=== PATIENT | female | born 1990 | race Caucasian/White ===

== ENCOUNTER 2016-05-14 07:08 | Emergency (ER) | payer SELFPAY ==
[2016-05-14] MEDS ORDERED: NORMAL SALINE 1000 ML 1,000 ML IV ONE (07:51)
--- NOTE | 2016-05-14 07:56 | ER Document Report ---
ED GI/ <MARQUIS SIDDIQUI - Last Filed: 05/14/16 13:06> - General Mode of Arrival: Ambulatory TRAVEL OUTSIDE OF THE [place] IN LAST 30 DAYS: No - HPI Patient complains to provider of: Abdominal pain, Vomiting Onset: Yesterday Timing/Duration: Sudden, Persistent Vaginal bleeding (Compared to normal period): None Menstrual period history: : 6 Para: 3 - Associated symptoms: Lightheaded, Nausea, Vomiting. denies: Fever Exacerbated by: Denies <RAMONA BOSS - Last Filed: 05/16/16 05:57> - General Chief Complaint: Vomiting Stated Complaint: STOMACH PAIN Notes: Patient is a 25 y/o female smoker presenting to the emergency department concerned of vomiting onset approximately 24 hours ago. Patient states that she does normally experience nausea and vomiting with her pregnancies, but not with accompanied abdominal pain. Patient states that her generalized abdominal pain started after the vomiting, and that she is also experiencing weakness and lightheadedness. Patient denies any fever, cough, vaginal bleeding, or anything that exacerbates her symptoms. (RAMONA BOSS) - Related Data Allergies/Adverse Reactions: fish derived [Fish derived] Allergy (Severe, Verified 05/14/16 07:13) swelling Penicillins Allergy (Severe, Verified 05/14/16 07:13) hives, rash Shellfish * [Shellfish] Allergy (Severe, Verified 05/14/16 07:13) Hives Home Medications: Current Home Medications Ranitidine HCl [Zantac] 150 mg PO DAILY 05/14/16 [History] Past Medical History - General Information source: Patient - Social History Smoking Status: Current Every Day Smoker Chew tobacco use (# tins/day): No Frequency of alcohol use: None Drug Abuse: None Lives with: Spouse/Significant other Family History: Reviewed & Not Pertinent, Arthritis, Hyperlipidemia, Hypertension, Malignancy Patient has suicidal ideation: No Patient has homicidal ideation: No Pulmonary Medical History: Reports: Hx Asthma - inhalers if needed, Hx Bronchitis Endocrine Medical History: Reports: Hx Hypothyroidism Renal/ Medical History: Reports: Other - 2 Miscarriages GI Medical History: Reports: Hx Gastroesophageal Reflux Disease Musculoskeltal Medical History: Reports Hx Musculoskeletal Deformity - Degenerative disc disease gentle joint disease and chronic back pain, Reports Hx Musculoskeletal Trauma Psychiatric Medical History: Reports: Hx Anxiety, Hx Depression Past Surgical History: Reports: Hx Section - X3, Hx Cholecystectomy - Immunizations Immunizations up to date: Yes Hx Diphtheria, Pertussis, Tetanus Vaccination: Yes Hx Pneumococcal Vaccination: 05/03/13 <RAMONA BOSS - Last Filed: 05/16/16 05:57> Review of Systems - Review of Systems Constitutional: See HPI, Weakness. denies: Fever EENT: No symptoms reported Cardiovascular: See HPI, Lightheaded Respiratory: No symptoms reported. denies: Cough Gastrointestinal: See HPI, Abdominal pain, Nausea, Vomiting Genitourinary: No symptoms reported Female Genitourinary: No symptoms reported. denies: Vaginal bleeding Musculoskeletal: No symptoms reported Skin: No symptoms reported Hematologic/Lymphatic: No symptoms reported Neurological/Psychological: No symptoms reported -: Yes All other systems reviewed and negative <RAMONA BOSS - Last Filed: 05/16/16 05:57> Physical Exam - Vital signs Interpretation: Tachycardic - General General appearance: Alert - HEENT Head: Normocephalic, Atraumatic Eyes: Normal Pupils: PERRL Mucous membranes: Normal - Respiratory Respiratory status: No respiratory distress Chest status: Nontender Breath sounds: Normal Chest palpation: Normal - Cardiovascular Rhythm: Tachycardia Heart sounds: Normal auscultation Murmur: No - Abdominal Inspection: Obese Distension: No distension Bowel sounds: Normal Tenderness: Tender - Mild diffuse tenderness to palpation. Organomegaly: No organomegaly - Back Back: Normal, Nontender - Extremities General upper extremity: Normal inspection, Nontender, Normal color, Normal ROM , Normal temperature General lower extremity: Normal inspection, Nontender, Normal color, Normal ROM , Normal temperature - Neurological Neuro grossly intact: Yes Cognition: Normal [place] Coma Scale Eye Opening: Spontaneous [place] Coma Scale Verbal: Oriented [place] Coma Scale Motor: Obeys Commands [place] Coma Scale Total: 15 Speech: Normal - Psychological Associated symptoms: Normal affect, Normal mood - Skin Skin Temperature: Warm Skin Moisture: Dry Skin Color: Normal <RAMONA BOSS - Last Filed: 05/16/16 05:57> - Vital signs Vitals: Temp Pulse Resp BP Pulse Ox 97.9 F 138 H 20 118/77 100 05/14/16 07:13 05/14/16 07:13 05/14/16 07:13 05/14/16 07:13 05/14/16 07:13 (MARQUIS SIDDIQUI) (RAMONA BOSS) Course - Laboratory Result Diagrams: 05/14/16 08:15 05/14/16 08:15 - Diagnostic Test Radiology reviewed: Reports reviewed - Ultrasound shows a 6 week 5 day intrauterine with a heart rate 157. There are no other significant abnormalities noted. <MARQUIS SIDDIQUI - Last Filed: 05/14/16 13:06> - Laboratory Result Diagrams: 05/14/16 08:15 05/14/16 08:15 <RAMONA BOSS - Last Filed: 05/16/16 05:57> - Re-evaluation Re-evalutation: 05/14/16 13:07 The patient's nauseousness returned when the Reglan began to wear off. She was reevaluated and abdomen found to be quite soft, normal bowel sounds, diffusely mildly tender. She states it feels sore from all the vomiting she has been doing. She'll be discharged home with a prescription for Phenergan and recommendation to follow-up with [facility]. (MARQUIS SIDDIQUI) - Vital Signs Vital signs: Temp Pulse Resp BP Pulse Ox 98.2 F 88 16 109/68 100 05/14/16 13:43 05/14/16 13:43 05/14/16 13:43 05/14/16 13:43 05/14/16 13:43 (MARQUIS SIDDIQUI) (RAMONA BOSS) - Laboratory Laboratory results interpreted by me: 05/14/16 05/14/16 05/14/16 08:15 08:15 09:15 WBC 15.0 H Seg Neutrophils % 82.6 H Lymphocytes % 10.8 L Absolute Neutrophils 12.4 H Beta HCG, Quant 47464.00 H Urine Blood SMALL H Ur Leukocyte Esterase TRACE H (MARQUIS SIDDIQUI) Discharge <MARQUIS SIDDIQUI - Last Filed: 05/14/16 13:06> <RAMONA BOSS - Last Filed: 05/16/16 05:57> - Discharge Clinical Impression: Nausea and vomiting Qualifiers: Vomiting type: unspecified Vomiting Intractability: non-intractable Qualified Code(s): R11.2 - Nausea with vomiting, unspecified Abdominal pain Qualifiers: Abdominal location: generalized Qualified Code(s): R10.84 - Generalized abdominal pain Qualifiers: Weeks of gestation: less than 8 weeks Qualified Code(s): Z3A.01 - Less than 8 weeks gestation of Condition: Stable Disposition: HOME, SELF-CARE Additional Instructions: Hyperemesis Gravidarum Hyperemesis gravidarum is the medical term for severe vomiting during . We don't know exactly why it occurs, but it's a common problem. Dehydration can occur. This reduces blood flow to the placenta, decreasing the baby's nourishment. The baby will also become dehydrated. There can be harmful changes in blood sodium, potassium, or acid balance. Our goal is to correct, and prevent, dehydration. For severe cases, we give IV fluids. Antinausea medication will be prescribed. (Don't be concerned about " defects" -- the risk to you and your baby from the hyperemesis is the biggest problem. The antinausea medication is very safe at this stage of .) Call the doctor if you have vaginal bleeding, abdominal pain, severe lightheadedness or weakness, or other alarming symptoms. Nausea or Vomiting, Nonspecific: Vomiting (or nausea without vomiting) can be caused by many different problems. Of course, it can mean that something's wrong with the stomach, such as "stomach flu," ulcers, or inflammation. But it can also be a symptom of a problem that has nothing to do with the stomach or intestines. Vomiting is common with severe headaches, earaches, and tonsillitis. We see it with pneumonia or heart attacks. Drugs can cause nausea. Many abdominal problems cause vomiting; for example, gallstones, kidney stones, pancreatitis, and intestinal obstruction (blocked bowels). In most cases, curing the vomiting depends on fixing the problem that caused it. For temporary relief, we may use an anti-nausea medicine. For home use, we can prescribe suppositories, chewable pills, pills that dissolve in the mouth, or liquid anti-nausea drugs. If the vomiting seems to be caused by a problem in the stomach, acid-suppressing drugs may be prescribed as well. It's important to avoid dehydration. Sip clear liquids. Take increasing amounts of fluid over the first 24 hours. Then start small amounts of bland foods (such as dry toast, applesauce, mashed potato). Avoid aspirin, tobacco, and alcohol. Gradually resume your usual diet. If the vomiting worsens, if the problem that's making you vomit worsens, or if there's evidence of bleeding in the stomach (such as black, tarry stool, bloody or black vomit, or lightheadedness), you should return immediately. Call your doctor if you aren't improved in 24 to 36 hours. //////////////////////////////////////////////////////////////////////////////// //////////////////////////////////////////////////////////////////////////////// ///////////////// Your ultrasound shows a 6 week 5 day intrauterine with a heart rate of 157. It is a normal-appearing ultrasound. At this time I cannot tell if you're having hyperemesis gravidarum, or nausea vomiting from a viral illness. Both would be treated the same at this time. Take medications as prescribed. Drink small sips cool clear liquids. Bed rest. Follow-up with [facility]. RETURN TO THE EMERGENCY ROOM IF ANY NEW OR WORSENING SYMPTOMS. Prescriptions: Promethazine HCl [Phenergan 25 mg Tablet] 25 mg PO Q4 PRN #20 tablet PRN Reason: Forms: Return to Work Referrals: [facility] [Provider Group] - Follow up as needed Scribe Attestation: 05/14/16 13:11 I personally performed the services described in the documentation, reviewed and edited the documentation which was dictated to the scribe in my presence, and it accurately records my words and actions. (MARQUIS SIDDIQUI) Scribe Documentation <MARQUIS SIDDIQUI - Last Filed: 05/14/16 13:06> <RAMONA BOSS - Last Filed: 05/16/16 05:57> - Scribe Written by Bettyibe:: TERI DEE 05/14/16 0751 Acting as scribe for: (MARQUIS SIDDIQUI) Dr. Siddiqui (RAMONA BOSS)
[2016-05-14 08:34] LABS: ABSOLUTE BASOPHILS # (AUTO) 0.1 10^3/uL (0.0-0.2); ABSOLUTE EOSINOPHILS # (AUTO) 0.2 10^3/uL (0.0-0.6); ABSOLUTE LYMPHOCYTES (AUTO) 1.6 10^3/uL (0.5-4.7); ABSOLUTE MONOCYTES (AUTO) 0.7 10^3/uL (0.1-1.4); ABSOLUTE NEUT (AUTO) 12.4 10^3/uL (1.7-8.2); BASOPHILS % (AUTO) 0.4 % (0-2); EOSINOPHILS % (AUTO) 1.4 % (0-6); HEMATOCRIT 44.5 % (36.0-47.0); HEMOGLOBIN 15.2 g/dL (12.0-15.5); HGB HCT DIFFERENCE 1.1; LYMPHOCYTES % (AUTO) 10.8 % (13-45); MEAN CORPUSCULAR HEMOGLOBIN 30.5 pg (27.0-33.4); MEAN CORPUSCULAR HGB CONC 34.2 g/dL (32.0-36.0); MEAN CORPUSCULAR VOLUME 89 fl (80-97); MONOCYTES % (AUTO) 4.8 % (3-13); RED BLOOD COUNT 4.99 10^6/uL (3.72-5.28); SEGMENTED NEUTROPHILS % (AUTO) 82.6 % (42-78)
[2016-05-14 08:54] LABS: ALANINE AMINOTRANSFERASE 17 U/L (9-52); ALBUMIN 4.1 g/dL (3.5-5.0); ALKALINE PHOSPHATASE 60 U/L (38-126); ANION GAP 13 (5-19); ASPARTATE AMINO TRANSFERASE 17 U/L (14-36); BILIRUBIN,TOTAL 0.5 mg/dL (0.2-1.3); BLOOD UREA NITROGEN 10 mg/dL (7-20); CALCIUM 9.7 mg/dL (8.4-10.2); CARBON DIOXIDE 25 mmol/L (22-30); CHLORIDE 104 mmol/L (98-107); CREATININE RESULT 0.67 mg/dL (0.52-1.25); GLUCOSE 97 mg/dL (75-110); POTASSIUM 4.3 mmol/L (3.6-5.0); SODIUM 141.7 mmol/L (137-145); TOTAL PROTEIN 7.4 g/dL (6.3-8.2)
[2016-05-14] MEDS ORDERED: METOCLOPRAMIDE HCL INJ/PF 10 MG/2 ML SDV IV ONE ×2 (08:58→12:30)
[2016-05-14 09:45] LABS: APPEARANCE,URINE CLOUDY; BILIRUBIN,URINE NEGATIVE (NEGATIVE); GLUCOSE, URINE NEGATIVE (NEGATIVE); KETONES,URINE NEGATIVE (NEGATIVE); LEUKOCYTE ESTERASE,URINE TRACE (NEGATIVE); NITRITE,URINE NEGATIVE (NEGATIVE); PROTEIN,URINE NEGATIVE (NEGATIVE); URINE SPECIFIC GRAVITY 1.014; UROBILINOGEN,URINE NEGATIVE mg/dL (<2.0)
[2016-05-14] MEDS ORDERED: DEXTROSE 5%-NORMAL SALINE 1,000 ML IV ONE (09:47)
[2016-05-14 13:44] VITALS: BP 109/68
== END 2016-05-14 13:44 | disposition home or self-care (01) ==
LOC: ER 07:08
DX: R11.2 Nausea with vomiting, unspecified (principal); R10.84 Generalized abdominal pain; Z3A.01 Less than 8 weeks gestation of pregnancy; R10.9 Unspecified abdominal pain; R53.1 Weakness; F17.210 Nicotine dependence, cigarettes, uncomplicated
CPT/HCPCS: 96376; 99284; 96361; 96374; 36415; 84702; 85025; 80053; 81001; 76817; J2765; J7030

== ENCOUNTER 2016-12-25 08:27 | Outpatient (CLI) | payer MEDICAID | END 2016-12-25 09:01 | disposition home or self-care (01) | LOC: LC 08:27 | PROVIDERS: ATTEND Obstetrics & Gynecology | PROC: 4A1HXCZ Monitoring of Products of Conception, Cardiac Rate, External Approach (ICD-10-PCS; principal; 2016-12-25) | DX: Z34.93 Encounter for supervision of normal pregnancy, unspecified, third trimester (principal); Z36 Encounter for antenatal screening of mother; Z3A.38 38 weeks gestation of pregnancy | CPT/HCPCS: 59025 ==

== ENCOUNTER 2016-12-28 05:15 | Inpatient (IN) | payer MEDICAID ==
[2016-12-25 10:37] LABS: APPEARANCE,URINE CLOUDY; BILIRUBIN,URINE NEGATIVE (NEGATIVE); GLUCOSE, URINE NEGATIVE (NEGATIVE); KETONES,URINE NEGATIVE (NEGATIVE); LEUKOCYTE ESTERASE,URINE TRACE (NEGATIVE); NITRITE,URINE NEGATIVE (NEGATIVE); PROTEIN,URINE NEGATIVE (NEGATIVE); URINE SPECIFIC GRAVITY 1.015; UROBILINOGEN,URINE NEGATIVE mg/dL (<2.0)
[2016-12-25 11:38] LABS: ABSOLUTE BASOPHILS # (AUTO) 0.1 10^3/uL (0.0-0.2); ABSOLUTE EOSINOPHILS # (AUTO) 0.1 10^3/uL (0.0-0.6); ABSOLUTE LYMPHOCYTES (AUTO) 2.9 10^3/uL (0.5-4.7); ABSOLUTE MONOCYTES (AUTO) 0.8 10^3/uL (0.1-1.4); ABSOLUTE NEUT (AUTO) 7.2 10^3/uL (1.7-8.2); BASOPHILS % (AUTO) 0.7 % (0-2); EOSINOPHILS % (AUTO) 1.3 % (0-6); HEMATOCRIT 33.5 % (36.0-47.0); HEMOGLOBIN 11.4 g/dL (12.0-15.5); HGB HCT DIFFERENCE 0.7; LYMPHOCYTES % (AUTO) 26.1 % (13-45); MEAN CORPUSCULAR HEMOGLOBIN 30.8 pg (27.0-33.4); MEAN CORPUSCULAR HGB CONC 34.1 g/dL (32.0-36.0); MEAN CORPUSCULAR VOLUME 90 fl (80-97); MONOCYTES % (AUTO) 6.8 % (3-13); RED CELL DISTRIBUTION WIDTH 14.8 % (11.5-14.0); SEGMENTED NEUTROPHILS % (AUTO) 65.1 % (42-78); WHITE BLOOD COUNT 11.1 10^3/uL (4.0-10.5)
[2016-12-25 12:16] LABS: URINE BARBITURATES SCREEN NEGATIVE; URINE METHADONE SCREEN NEGATIVE; URINE OPIATES LOW UNCONFIRMED POSITIVE; URINE PHENCYCLIDINE SCREEN NEGATIVE
[~2016-12-28 05:15] MED LIST: CEFAZOLIN 1 GM/D5W RTU 1 GM/50 ML RTUPB IV PRN; LACTATED RINGERS 1000 ML IV PRN; LIDOCAINE 0.5% INJ-PF (5 MG/ML) 50 ML SDV SUBCUT PRN; RINGERS SOLUTION,LACTATED 1,000 ML IV PRN
[2016-12-28] MEDS ORDERED: EPHEDRINE SULFATE INJ 50 MG/1 ML AMPULE ONE (07:24)
[2016-12-28] MEDS ORDERED: OXYTOCIN 10 UNIT/ML VIAL ONE (07:24)
[2016-12-28] MEDS ORDERED: MIDAZOLAM 2 MG/2 ML INJ ONE (07:25)
[2016-12-28] MEDS ORDERED: FENTANYL CITRATE INJ/PF 100 MCG/2 ML AMPUL ONE ×2 (07:25→10:13)
[2016-12-28] MEDS ORDERED: AZITHROMYCIN 500 MG in DEXTROSE 5%-WATER 250 ML IV PRN (07:26)
[2016-12-28] MEDS ORDERED: KETAMINE HCL INJ 500 MG/10 ML VIAL ONE (08:01)
[2016-12-28] MEDS ORDERED: METHYLERGONOVINE MALEATE INJ/PF 0.2 MG/1 ML AMPULE ONE (08:24)
[2016-12-28] MEDS ORDERED: FENTANYL CITRATE INJ/PF 100 MCG/2 ML AMPUL IV PRN ×3 (08:32)
[2016-12-28] MEDS ORDERED: MORPHINE SULFATE 10 MG/ML INJ IV PRN (08:32)
[2016-12-28] MEDS ORDERED: DIPHENHYDRAMINE HCL 50 MG/ML VIAL IV PRN (08:32)
[2016-12-28] MEDS ORDERED: MEPERIDINE HCL/PF INJ 25 MG/1 ML DISP.SYRIN IV PRN (08:32)
[2016-12-28] MEDS ORDERED: ACETAMINOPHEN 100 ML IV ONE (09:20)
[2016-12-28] MEDS ORDERED: OXYTOCIN/NORMAL SALINE 20 UNIT/1,000 ML RTUINJ ONE (09:20)
[2016-12-28] MEDS ORDERED: OXYTOCIN/NORMAL SALINE 20 UNIT/1,000 ML RTUINJ INJ PRN (09:29)
[2016-12-28] MEDS ORDERED: OXYCODONE-ACETAMINOPHEN 5-325 MG TABLET PO PRN (09:30)
[2016-12-28] MEDS ORDERED: SIMETHICONE 80 MG TAB.CHEW PO PRN (09:30)
[2016-12-28] MEDS ORDERED: PROMETHAZINE HCL INJ 25 MG/1 ML VIAL IM PRN (09:30)
[2016-12-28] MEDS ORDERED: ACETAMINOPHEN 325 MG TABLET PO PRN (09:30)
[2016-12-28] MEDS ORDERED: DIPH/PERTUSS(ACELL)/TETANUS VAC/PF 0.5 ML SYR (>=10YO) IM PRN (09:30)
[2016-12-28] MEDS ORDERED: HYDROMORPHONE HCL INJ/PF 2 MG/ML AMPULE IV PRN (09:30)
[2016-12-28] MEDS ORDERED: MEASLES,MUMPS&RUBELLA VACC/PF 0.5 ML VIAL SUBCUT PRN (09:30)
[2016-12-28] MEDS ORDERED: KETOROLAC TROMETHAMINE INJ/PF 30 MG/1 ML SDV ONE (09:49)
[2016-12-28] MEDS ORDERED: KETOROLAC TROMETHAMINE INJ/PF 30 MG/1 ML SDV IV SCH (10:00)
[2016-12-28] MEDS ORDERED: HYDROMORPHONE HCL INJ/PF 2 MG/ML AMPULE ONE (10:49)
[2016-12-28] MEDS: DIPHENHYDRAMINE HCL 50 MG/ML VIAL IV PRN ×2 (12:44→18:02)
[2016-12-28] MEDS ORDERED: ONDANSETRON HCL INJ/PF 4 MG/2 ML SDV ONE (12:46)
[2016-12-28] MEDS: DOCUSATE SODIUM 100 MG CAPSULE PO SCH ×2 (12:48→18:03)
[2016-12-28] MEDS: PRENATAL VITAMIN W-O CA NO5/FE FUMARATE/FA CAPSULE PO SCH (12:48)
[2016-12-28] MEDS: HYDROMORPHONE HCL INJ/PF 2 MG/ML AMPULE IV PRN ×4 (13:20→22:37)
[2016-12-28] MEDS: RINGERS SOLUTION,LACTATED 1,000 ML IV SCH (16:15)
[2016-12-28] MEDS: KETOROLAC TROMETHAMINE INJ/PF 30 MG/1 ML SDV IV SCH (18:03)
[2016-12-28] MEDS: OXYCODONE-ACETAMINOPHEN 5-325 MG TABLET PO PRN (21:30)
[2016-12-29] MEDS: DIPHENHYDRAMINE HCL 50 MG/ML VIAL IV PRN (00:41)
[2016-12-29] MEDS: RINGERS SOLUTION,LACTATED 1,000 ML IV SCH (01:27)
[2016-12-29] MEDS: KETOROLAC TROMETHAMINE INJ/PF 30 MG/1 ML SDV IV SCH (01:57)
[2016-12-29] MEDS: HYDROMORPHONE HCL INJ/PF 2 MG/ML AMPULE IV PRN (05:23)
[2016-12-29 06:29] LABS: HEMATOCRIT 25.9 % (36.0-47.0); HEMOGLOBIN 8.8 g/dL (12.0-15.5); HGB HCT DIFFERENCE 0.5; MEAN CORPUSCULAR HEMOGLOBIN 30.3 pg (27.0-33.4); MEAN CORPUSCULAR HGB CONC 33.9 g/dL (32.0-36.0); MEAN CORPUSCULAR VOLUME 90 fl (80-97); RED BLOOD COUNT 2.89 10^6/uL (3.72-5.28); WHITE BLOOD COUNT 11.5 10^3/uL (4.0-10.5)
[2016-12-29] MEDS: OXYCODONE-ACETAMINOPHEN 5-325 MG TABLET PO PRN ×4 (07:44→20:48)
[2016-12-29] MEDS: PRENATAL VITAMIN W-O CA NO5/FE FUMARATE/FA CAPSULE PO SCH (09:39)
[2016-12-29] MEDS: DOCUSATE SODIUM 100 MG CAPSULE PO SCH ×2 (09:39→17:04)
[2016-12-29] MEDS ORDERED: FERROUS SULFATE 325 MG TABLET PO SCH (11:00)
[2016-12-29] MEDS ORDERED: DIPHENHYDRAMINE HCL 25 MG CAPSULE PO PRN (11:19)
[2016-12-29] MEDS ORDERED: IBUPROFEN 800 MG TABLET PO ONE (12:00)
--- NOTE | 2016-12-29 12:57 | PDOC PROGRESS REPORT ---
Subjective-OB Subjective: Post Delivery Day:1 26 year old G6 now P4 s/p RLTCS ppd1. Ambulating and voiding without difficulty.Denies any needs at this time Physical Exam (OB) Vital Signs: Temp Pulse Resp BP Pulse Ox 98.1 F 78 20 115/66 99 12/29/16 08:40 12/29/16 08:40 12/29/16 08:40 12/29/16 08:40 12/29/16 08:40 Intake & Output 12/28/16 12/29/16 12/30/16 06:59 06:59 06:59 Intake Total 1100 Output Total 1425 Balance -325 Weight 94.5 kg - General General Appearance: Appears well In distress: None - PIH/Pre-Eclampsia DTR's: 2 + Clonus: Negative Headache: Absent Epigastric Pain: No Visual Changes: No - Dressing Removed: Yes Incision: Dressing, Well Approximated Closure Type: opsite - Lochia Lochia Amount: Moderate 25-50 ml Lochia Color: Rubra/Red - Abdomen Description: Soft, Round Hernia Present: No Fundal Description: Firm, Midline Fundal Height: u/u - u/2 - Respiratory Respiratory Status: No respiratory distress - Extremities Upper extremity: Normal inspection Lower extremities: Normal inspection - Neurological Cognition: Normal Orientation: AAOx4 - Psychological Associated symptoms: Normal affect, Normal mood Objective-Diagnostic Laboratory: 12/29/16 06:18 12/29/16 06:18 WBC 11.5 H RBC 2.89 L Hgb 8.8 L Hct 25.9 L MCV 90 MCH 30.3 MCHC 33.9 RDW 15.0 H Plt Count 169 Assessment and Plan(PN) - Assessment and Plan (1) Acute blood loss anemia Is this a current diagnosis for this admission?: Yes Plan: increase iron supplementation in diet and po FeSO4 BID (2) S/P repeat low transverse Is this a current diagnosis for this admission?: Yes Plan: routine pp care (3) Cigarette smoker within last 12 months Is this a current diagnosis for this admission?: Yes Plan: smoking cessation encouraged - Time Spent with Patient Time with patient: Less than 15 minutes Smoking Education Provided: Over 3 minutes Medications reviewed and adjusted accordingly: Yes - Disposition Anticipated Discharge: Home Within: within 24 hours
[2016-12-29] MEDS: FERROUS SULFATE 325 MG TABLET PO SCH (17:24)
[2016-12-29] MEDS: IBUPROFEN 800 MG TABLET PO SCH (21:11)
[2016-12-29] MEDS ORDERED: DIPHENHYDRAMINE HCL 25 MG CAPSULE PO SCH (22:00)
[2016-12-30] MEDS: OXYCODONE-ACETAMINOPHEN 5-325 MG TABLET PO PRN ×3 (00:58→10:23)
[2016-12-30] MEDS: IBUPROFEN 800 MG TABLET PO SCH (05:04)
[2016-12-30] MEDS: PRENATAL VITAMIN W-O CA NO5/FE FUMARATE/FA CAPSULE PO SCH (10:23)
[2016-12-30] MEDS: DOCUSATE SODIUM 100 MG CAPSULE PO SCH (10:23)
[2016-12-30] MEDS: FERROUS SULFATE 325 MG TABLET PO SCH (10:23)
--- NOTE | 2016-12-30 11:28 | PDOC PROGRESS REPORT ---
Subjective-OB Subjective: Post Delivery Day: 26 year old. Denies any needs at this time Doing well, tired, hsb and baby at BS, ready to go home, pain under control, voiding, passing gas Physical Exam (OB) Vital Signs: Temp Pulse Resp BP Pulse Ox 97.7 F 75 16 117/76 99 12/30/16 08:21 12/30/16 08:21 12/30/16 08:21 12/30/16 08:21 12/30/16 08:21 Intake & Output 12/29/16 12/30/16 12/31/16 06:59 06:59 06:59 Intake Total 1100 240 Output Total 1425 Balance -325 240 - PIH/Pre-Eclampsia DTR's: 2 + Clonus: Negative Headache: Absent Epigastric Pain: No Visual Changes: No - Dressing Removed: No - opsite Incision: Well Approximated Closure Type: opsite - Lochia Lochia Amount: Scant < 10 ml Lochia Color: Rubra/Red - Abdomen Description: Soft Hernia Present: No Fundal Description: Firm, Midline Fundal Height: u/u - u/2 Objective-Diagnostic Laboratory: 12/29/16 06:18 Assessment and Plan(PN) - Assessment and Plan (2) Acute blood loss anemia Is this a current diagnosis for this admission?: Yes (3) Cigarette smoker within last 12 months Is this a current diagnosis for this admission?: Yes - Time Spent with Patient Time with patient: Less than 15 minutes Smoking Education Provided: Over 3 minutes Medications reviewed and adjusted accordingly: Yes - Disposition Anticipated Discharge: Home Within: within 24 hours
--- NOTE | 2016-12-30 11:34 | PDOC DISCHARGE SUMMARY ---
Final Diagnosis Discharge Date: 12/30/16 - Final Diagnosis (1) Delivery by elective caesarean section Is this a current diagnosis for this admission?: Yes (2) Acute blood loss anemia Is this a current diagnosis for this admission?: Yes (3) Cigarette smoker within last 12 months Is this a current diagnosis for this admission?: Yes Discharge Data - Discharge Medication Home Medications: Ranitidine HCl [Zantac] 150 mg PO DAILY 05/14/16 Pnv No.122/Iron/Folic Acid [ Multi Tablet] 1 tab PO DAILY 12/25/16 Ibuprofen [Motrin 800 mg Tablet] 800 mg PO Q8 #60 tablet 12/30/16 Oxycodone HCl/Acetaminophen [Percocet 5-325 mg Tablet] 1 tab PO Q4HP PRN #30 tablet 12/30/16 Gestational Age: 39 Reason(s) for Admission: Ceasarean Section-Repeat - late care Procedures: Ultrasound Intrapartum Procedure(s): : Low Cervical, Transverse - Data Baby 1 Female Weight: 2.948 kg Home with Mother: Yes Complications: No - Diagnosis Test Laboratory: Temp Pulse Resp BP Pulse Ox 97.7 F 75 16 117/76 99 12/30/16 08:21 12/30/16 08:21 12/30/16 08:21 12/30/16 08:21 12/30/16 08:21 12/25/16 12/25/16 12/29/16 10:05 10:48 06:18 RBC 3.70 L 2.89 L Hgb 11.4 L 8.8 L Hct 33.5 L 25.9 L Urine Opiates Screen UNCONFIRMED POSITIVE - Discharge information/Instructions Discharge Activity: Activity As Tolerated, No Lifting Over 10 Pounds, No Lifting /Push/Pulling, Non-Ambulatory Child, Pelvic Rest Discharge Diet: As Tolerated, Regular Disposition: HOME, SELF-CARE Follow up with: [facility] in: 1, Weeks
[2016-12-30 11:39] VITALS: BP 125/76
[2017-12-29] MEDS ORDERED: IBUPROFEN 800 MG TABLET PO SCH
== END 2016-12-30 13:50 | disposition home or self-care (01) | DRG 765 ==
LOC: 2S 05:15
PROVIDERS: ADMIT Obstetrics & Gynecology; ATTEND Obstetrics & Gynecology
PROC: 4A1HXCZ Monitoring of Products of Conception, Cardiac Rate, External Approach (ICD-10-PCS; 2016-12-28)
PROC: 10D00Z1 Extraction of Products of Conception, Low, Open Approach (ICD-10-PCS; principal; 2016-12-28 07:45)
DX: O34.211 Maternal care for low transverse scar from previous cesarean delivery (principal); D62 Acute posthemorrhagic anemia; O99.02 Anemia complicating childbirth; O76 Abnormality in fetal heart rate and rhythm complicating labor and delivery; O69.81X0 Labor and delivery complicated by cord around neck, without compression, not applicable or unspecified; O99.334 Smoking (tobacco) complicating childbirth; O99.344 Other mental disorders complicating childbirth; F41.9 Anxiety disorder, unspecified; F17.210 Nicotine dependence, cigarettes, uncomplicated; Z3A.39 39 weeks gestation of pregnancy; Z37.0 Single live birth; Z88.0 Allergy status to penicillin; Z91.013 Allergy to seafood
CPT/HCPCS: 1961; 36415; 59025; 80307; 81001; 85025; 85027; 86850; 86900; 86901; 94799; J0131; J1170; J1200; J1885; J2210; J2250; J2405; J2590; J3010; J3490; J7120

== ENCOUNTER 2017-05-07 15:45 | Emergency (ER) | payer OTHER, MEDICAID ==
[2017-05-07] MEDS ORDERED: HYDROCODONE/ACETAMINOPHEN 5-325 MG TABLET PO ONE (17:18)
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
[2017-05-07 18:39] VITALS: BP 130/97
== END 2017-05-07 18:39 | disposition home or self-care (01) ==
LOC: ER 15:45
DX: S60.212A Contusion of left wrist, initial encounter (principal); M79.1 Myalgia; M54.2 Cervicalgia; V48.5XXA Car driver injured in noncollision transport accident in traffic accident, initial encounter; Z88.0 Allergy status to penicillin; Z91.013 Allergy to seafood; Z90.49 Acquired absence of other specified parts of digestive tract
CPT/HCPCS: 70450; 71250; 72125; 99284

== ENCOUNTER 2017-08-16 13:56 | Emergency (ER) | payer MEDICAID ==
[2017-08-16 14:02] VITALS: BP 123/79
[2017-08-16] MEDS ORDERED: IBUPROFEN 600 MG TABLET PO ONE (14:47)
--- NOTE | 2017-08-16 14:47 | ER Document Report ---
HPI - HPI Onset: Just prior to arrival Onset/Duration: Sudden Pain Level: 4 Notes: Patient is a 26-year-old female who presents to the emergency department with complaint of right hand pain after she states she was taking apart a trundle bed in a piece of wood fell onto her hand. Patient complains of pain to the entire dorsal surface of hand, no pain in the wrist. Patient denies taking any medications for the pain prior to arrival. - REPRODUCTIVE Reproductive: DENIES: : Past Medical History - General Information source: Patient - Social History Smoking Status: Current Some Day Smoker Family History: Reviewed & Not Pertinent, Arthritis, Hyperlipidemia, Hypertension, Malignancy Pulmonary Medical History: Reports: Hx Asthma - inhalers if needed, Hx Bronchitis Endocrine Medical History: Reports: Hx Hypothyroidism Renal/ Medical History: Denies: Hx Peritoneal Dialysis GI Medical History: Reports: Hx Gastroesophageal Reflux Disease Musculoskeltal Medical History: Reports Hx Musculoskeletal Deformity - Degenerative disc disease gentle joint disease and chronic back pain, Reports Hx Musculoskeletal Trauma Psychiatric Medical History: Reports: Hx Anxiety, Hx Depression Past Surgical History: Reports: Hx Section - X3, Hx Cholecystectomy - Immunizations Immunizations up to date: Yes Hx Diphtheria, Pertussis, Tetanus Vaccination: Yes Hx Pneumococcal Vaccination: 05/03/13 Vertical Provider Document - CONSTITUTIONAL Agree With Documented VS: Yes Exam Limitations: No Limitations - INFECTION CONTROL TRAVEL OUTSIDE OF THE [place] IN LAST 30 DAYS: No - HEENT HEENT: Atraumatic, Normocephalic, PERRLA - NECK Neck: Normal Inspection - RESPIRATORY Respiratory: Breath Sounds Normal - CARDIOVASCULAR Cardiovascular: Regular Rate Pulses: Bounding: Radial - BACK Back: Normal Inspection - MUSCULOSKELETAL/EXTREMETIES Musculoskeletal/Extremeties: Tender - dorsal surface of right hand - NEURO Level of Consciousness: Awake, Alert, Appropriate Course - Re-evaluation Re-evalutation: X-ray shows no evidence of acute fracture. Neurovascular exam normal, cap refill less than 3 seconds distal to injury. Will treat patient for hand contusion. Patient will follow-up with [facility] if her symptoms persist. - Vital Signs Vital signs: Temp Pulse Resp BP Pulse Ox 97.9 F 92 18 123/79 97 08/16/17 14:01 08/16/17 14:01 08/16/17 14:01 08/16/17 14:01 08/16/17 14:01 Discharge - Discharge Clinical Impression: Contusion of hand Qualifiers: Encounter type: initial encounter Laterality: right Qualified Code(s): S60.221A - Contusion of right hand, initial encounter Condition: Stable Disposition: HOME, SELF-CARE Instructions: Contusion ([facility]), Ice & Elevation ([facility]) Additional Instructions: Your x-ray does not show any evidence of fracture. Use the Abhishek wrap as needed for comfort. Ice and elevate according to directions on handout. You may use Tylenol or the toradol prescribed for pain and inflammation. If your pain persists please follow-up with orthopedics in 1 week. Prescriptions: Ibuprofen 600 mg PO Q6 #30 tablet Ketorolac Tromethamine [Toradol 10 mg Tablet] 10 mg PO Q6 PRN #20 tablet PRN Reason: Referrals: CHASE BARRAGAN DO [ACTIVE STAFF] - Follow up as needed
--- NOTE | 2017-08-16 15:12 | RADIOLOGY REPORT (SQ) ---
EXAM DESCRIPTION: HAND RIGHT 3 VIEWS COMPLETED DATE/TIME: 08/16/2017 2:56 pm REASON FOR STUDY: pain after bed fell on hand COMPARISON: None. EXAM PARAMETERS: NUMBER OF VIEWS: Three views. TECHNIQUE: AP, lateral and oblique radiographic images acquired of the right hand. LIMITATIONS: None. FINDINGS: MINERALIZATION: Normal. BONES: No acute fracture or dislocation. No worrisome bone lesions. JOINTS: No effusions. SOFT TISSUES: No soft tissue swelling. No foreign body. OTHER: No other significant finding. IMPRESSION: NEGATIVE STUDY OF THE RIGHT HAND. NO RADIOGRAPHIC EVIDENCE OF ACUTE INJURY. TECHNICAL DOCUMENTATION: JOB ID: [id number] [employer]- All Rights Reserved Reading location - IP/workstation name: [email or web address]
== END 2017-08-16 16:06 | disposition home or self-care (01) ==
LOC: ER 13:56
DX: S60.221A Contusion of right hand, initial encounter (principal); W20.8XXA Other cause of strike by thrown, projected or falling object, initial encounter; F17.200 Nicotine dependence, unspecified, uncomplicated; Z90.49 Acquired absence of other specified parts of digestive tract
CPT/HCPCS: 99283; 73130; J3490

== ENCOUNTER 2018-01-06 17:36 | Inpatient (IN) | payer SELFPAY ==
--- NOTE | 2018-01-06 17:52 | ER Document Report ---
ED Psych Disorder / Suicide - General Chief Complaint: Overdose Stated Complaint: POSSIBLE OVERDOSE Time Seen by Provider: 01/06/18 17:42 Information source: Patient, Emergency Med Personnel Notes: Patient is a 27-year-old female with past medical history including depression who presents today by EMS. Patient supposedly took possibly 90 tablets of 1 mg Xanax as well as possibly 30 tablets of 100 mg trazodone. She states that she just "wanted to relax". Patient denies ingesting any other substances including alcohol. It appears that the patient's 2 bottles of these above substances are empty. They will recently filled on December 28. The other medicines as recorded appear to be appropriately still on the bottle from date of prescription. The patient's boyfriend is the one who called EMS. EMS states that the patient was protecting her airway. They state that she was following commands. TRAVEL OUTSIDE OF THE [place] IN LAST 30 DAYS: No - HPI Patient complains to provider of: Other - See above Onset: Just prior to arrival - See above Onset was: Sudden Quality of pain: No pain Severity: Severe Pain Level: Denies Suicide Risk Factors: Other - See above Suicide Attempt Method: Other - See above Overdose of: Other - See above Similar symptoms previously: Yes Recently seen / treated by doctor: No - Related Data Allergies/Adverse Reactions: fish derived [Fish derived] Allergy (Severe, Verified 08/16/17 13:57) swelling Penicillins Allergy (Severe, Verified 08/16/17 13:57) hives, rash Shellfish * [Shellfish] Allergy (Severe, Verified 08/16/17 13:57) Hives Past Medical History - General Information source: Patient - Social History Smoking Status: Unknown if Ever Smoked Cigarette use (# per day): No Chew tobacco use (# tins/day): No Family History: Reviewed & Not Pertinent, Arthritis, Hyperlipidemia, Hypertension, Malignancy Pulmonary Medical History: Reports: Hx Asthma - inhalers if needed, Hx Bronchitis Endocrine Medical History: Reports: Hx Hypothyroidism Renal/ Medical History: Denies: Hx Peritoneal Dialysis GI Medical History: Reports: Hx Gastroesophageal Reflux Disease Musculoskeletal Medical History: Reports Hx Musculoskeletal Deformity - Degenerative disc disease gentle joint disease and chronic back pain, Reports Hx Musculoskeletal Trauma Psychiatric Medical History: Reports: Hx Anxiety, Hx Depression Past Surgical History: Reports: Hx Section - X3, Hx Cholecystectomy - Immunizations Immunizations up to date: Yes Hx Diphtheria, Pertussis, Tetanus Vaccination: Yes Hx Pneumococcal Vaccination: 05/03/13 Review of Systems - Review of Systems Constitutional: denies: Fever EENT: denies: Eye discharge, Nose discharge Cardiovascular: denies: Chest pain, Palpitations Respiratory: denies: Short of breath Gastrointestinal: denies: Abdominal pain, Vomiting Genitourinary: denies: Dysuria Musculoskeletal: denies: Leg swelling Skin: Other - no hives. denies: Rash Neurological/Psychological: Other - no slurred speech -: Yes All other systems reviewed and negative Physical Exam - Vital signs Notes: Reviewed vital signs and nursing note as charted by RN. CONSTITUTIONAL: Somnolent but alert and does answer questions appropriately and follows commands. Patient appears to be protecting her airway HEAD: Normocephalic; atraumatic EYES: PERRL; Sclerae non-icteric ENT: Normal nose; no rhinorrhea; moist mucous membranes; pharynx without lesions noted NECK: Supple without meningismus; non-tender CARD: Regular rate and rhythm; no murmurs; symmetric distal pulses RESP: Normal chest excursion without splinting or tachypnea; breath sounds clear and equal bilaterally ABD/GI: Normal bowel sounds; non-distended; soft, non-tender; no palpable organomegaly or masses BACK: The back appears normal and is non-tender to palpation EXT: Normal ROM in all joints; non-tender to palpation; no edema SKIN: Normal color for age and race; warm; dry; no acute lesions noted NEURO: CN II through XII are intact; no nystagmus noted; moves all extremities equally; Motor and sensory function intact Course - Re-evaluation Re-evalutation: 01/06/18 17:49 Given the history and physical examination, the patient was immediately placed on the monitor. I believe that the patient is protecting her airway. Basic labs, tox screen, EKG, and electrolytes have been ordered. Liver panel and lipase as well as a Tylenol and acetaminophen level have been sent. EKG shows a heart of 85, normal sinus rhythm, minimally prolonged QT interval. Incomplete right bundle branch block. 01/06/18 17:54 I spoke with Sarah of the [facility]. I have explained the history and physical examination as well as the QRS and QTc. She states that she would just check the electrolytes and magnesium level. We will place the patient on the monitor. She states that should be around a 6 hour observation after this ingestion. She recommends a fluid bolus and if the blood pressure should drop to start a norepinephrine drip. Blood pressures currently stable 01/06/18 18:36 Labs thus far as recorded. Urine culture has been sent. A gram of Rocephin has been provided. The magnesium is on the lower end of normal. I have already ordered 1 g of magnesium intravenously. No change in examination. Blood pressure stable. - Laboratory Result Diagrams: 01/06/18 17:40 01/06/18 17:40 Laboratory results interpreted by me: 01/06/18 01/06/18 01/06/18 17:40 17:40 17:40 Hgb 10.0 L Hct 31.2 L MCV 75 L MCH 24.1 L RDW 18.3 H Potassium 3.4 L Chloride 108 H Carbon Dioxide 21 L AST 12 L Urine Nitrite POSITIVE H Ur Leukocyte Esterase TRACE H Salicylates < 1.0 L Acetaminophen < 10 L Critical Care Note - Critical Care Note Total time excluding time spent on procedures (mins): 40 Discharge - Discharge Clinical Impression: Suicide attempt Overdose Qualifiers: Encounter type: initial encounter Injury intent: intentional self-harm Qualified Code(s): T50.902A - Poisoning by unspecified drugs, medicaments and biological substances, intentional self-harm, initial encounter
[2018-01-06] MEDS ORDERED: NORMAL SALINE 1000 ML 1,000 ML IV ONE (17:53)
[2018-01-06] MEDS ORDERED: MAGNESIUM SULFATE/D5W 1 GM/100 ML RTUPB IV ONE (17:59)
[2018-01-06 18:08] LABS: ABSOLUTE BASOPHILS # (AUTO) 0.1 10^3/uL (0.0-0.2); ABSOLUTE EOSINOPHILS # (AUTO) 0.1 10^3/uL (0.0-0.6); ABSOLUTE LYMPHOCYTES (AUTO) 1.9 10^3/uL (0.5-4.7); ABSOLUTE MONOCYTES (AUTO) 0.4 10^3/uL (0.1-1.4); ABSOLUTE NEUT (AUTO) 5.1 10^3/uL (1.7-8.2); BASOPHILS % (AUTO) 0.8 % (0-2); EOSINOPHILS % (AUTO) 1.6 % (0-6); HEMATOCRIT 31.2 % (36.0-47.0); LYMPHOCYTES % (AUTO) 25.2 % (13-45); MEAN CORPUSCULAR HEMOGLOBIN 24.1 pg (27.0-33.4); MEAN CORPUSCULAR VOLUME 75 fl (80-97); MONOCYTES % (AUTO) 5.5 % (3-13); PLATELET COUNT 280 10^3/uL (150-450); RED BLOOD COUNT 4.15 10^6/uL (3.72-5.28); RED CELL DISTRIBUTION WIDTH 18.3 % (11.5-14.0); SEGMENTED NEUTROPHILS % (AUTO) 66.9 % (42-78); TOTAL CELLS COUNTED % (AUTO) 100 %; WHITE BLOOD COUNT 7.6 10^3/uL (4.0-10.5)
[2018-01-06 18:23] LABS: APPEARANCE,URINE CLEAR; BILIRUBIN,URINE NEGATIVE (NEGATIVE); COLOR,URINE AMBER; GLUCOSE, URINE NEGATIVE (NEGATIVE); KETONES,URINE NEGATIVE (NEGATIVE); LEUKOCYTE ESTERASE,URINE TRACE (NEGATIVE); NITRITE,URINE POSITIVE (NEGATIVE); PROTEIN,URINE NEGATIVE (NEGATIVE); URINE SPECIFIC GRAVITY 1.014; UROBILINOGEN,URINE NEGATIVE mg/dL (<2.0)
[2018-01-06 18:25] LABS: ACETAMINOPHEN < 10 ug/mL (10-30); ALANINE AMINOTRANSFERASE 23 U/L (9-52); ALBUMIN 3.8 g/dL (3.5-5.0); ALCOHOL < 10 mg/dL (NONE DETECTED); ALKALINE PHOSPHATASE 71 U/L (38-126); ANION GAP 12 (5-19); ASPARTATE AMINO TRANSFERASE 12 U/L (14-36); BILIRUBIN,DIRECT 0.2 mg/dL (0.0-0.4); BILIRUBIN,TOTAL 0.6 mg/dL (0.2-1.3); BLOOD UREA NITROGEN 8 mg/dL (7-20); CALCIUM 8.7 mg/dL (8.4-10.2); CARBON DIOXIDE 21 mmol/L (22-30); CHLORIDE 108 mmol/L (98-107); GLUCOSE 84 mg/dL (75-110); POTASSIUM 3.4 mmol/L (3.6-5.0); SALICYLATE < 1.0 mg/dL (2.0-20.0); SODIUM 140.8 mmol/L (137-145); TOTAL PROTEIN 7.2 g/dL (6.3-8.2)
[2018-01-06] MEDS ORDERED: CEFTRIAXONE 1 GM/D5W RTU 1 GM/50 ML RTUPB IV ONE (18:36)
--- NOTE | 2018-01-06 18:36 | EKG REPORT ---
SEVERITY:- ABNORMAL ECG - SINUS RHYTHM PROLONGED QT INTERVAL : Confirmed by: Steffen Boo MD 06-Jan-2018 18:36:01
[2018-01-06 18:39] LABS: URINE AMPHETAMINES SCREEN NEGATIVE; URINE BARBITURATES SCREEN NEGATIVE; URINE BENZODIAZEPINES SCREEN UNCONFIRMED POSITIVE; URINE COCAINE SCREEN NEGATIVE; URINE MARIJUANA (THC) SCREEN UNCONFIRMED POSITIVE; URINE METHADONE SCREEN NEGATIVE; URINE PHENCYCLIDINE SCREEN NEGATIVE
[2018-01-06] MEDS ORDERED: POTASSIUM CHLORIDE 10 MEQ CAPSULE.ER PO ONE (18:56)
[2018-01-06 19:15] LABS: ACETAMINOPHEN < 10 ug/mL (10-30)
[2018-01-06] MEDS ORDERED: CEFTRIAXONE INJ 1000 MG VIAL ONE (19:42)
--- NOTE | 2018-01-07 10:00 | ER Document Report ---
Doctor's Note Notes: 01/07/18 09:59 Rounds: Chart reviewed and patient interviewed. Patient is awake and eating breakfast. Acknowledges taking an overdose of Xanax and trazodone. Patient has known depression. Labs were normal except for being positive for benzos on her drug screen and her potassium levels 3.4. Neither of these are clinically significant. Patient appears to be medically stable for transfer or discharge. Juventino Thompson MD 01/07/18 11:55 Nurses reported that patient is coughing up some abnormal appearing sputum and her O2 sats have dropped into the upper 80s at times. They put her on 3 L of oxygen and her O2 sat is 95%. I have asked to turn it down to 2 L O2. Chest x- ray was obtained and shows bronchovascular markings in the right base and increased density in the left retrocardiac area which could be atelectasis or minimal pneumonic infiltrate. Will contact the hospitalist for likely admission.
--- NOTE | 2018-01-07 11:22 | RADIOLOGY REPORT (SQ) ---
EXAM DESCRIPTION: CHEST 2 VIEWS COMPLETED DATE/TIME: 01/07/2018 11:08 am REASON FOR STUDY: Productive cough, here in ED for overdose COMPARISON: April 2015 EXAM PARAMETERS: NUMBER OF VIEWS: two views TECHNIQUE: Digital Frontal and Lateral radiographic views of the chest acquired. RADIATION DOSE: NA LIMITATIONS: none FINDINGS: LUNGS AND PLEURA: There is some prominence of the bronchovascular markings extending into the right lung base. There is increased density in the left retrocardiac area which could represent atelectatic changes or a minimal pneumonic infiltrate. Remaining lung burton are clear MEDIASTINUM AND HILAR STRUCTURES: No masses or contour abnormalities. HEART AND VASCULAR STRUCTURES: Heart normal size. No evidence for failure. BONES: No acute findings. HARDWARE: None in the chest. OTHER: No other significant finding. IMPRESSION: Bibasilar densities as noted above. Remaining lung burton are clear. Other findings as noted above TECHNICAL DOCUMENTATION: JOB ID: [id number] [employer]- All Rights Reserved Reading location - IP/workstation name: [email or web address]
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
[2018-01-07] MEDS ORDERED: ACETAMINOPHEN 325 MG TABLET PO PRN (13:10)
--- NOTE | 2018-01-07 13:14 | EKG REPORT ---
SEVERITY:- OTHERWISE NORMAL ECG - SINUS TACHYCARDIA : Confirmed by: Steffen Boo MD 07-Jan-2018 13:13:51
[2018-01-07] MEDS ORDERED: METRONIDAZOLE RTU 500 MG/NS 100 ML IV SCH (14:00)
[2018-01-07] MEDS ORDERED: CEFTRIAXONE 1 GM/D5W RTU 50 ML IV SCH (14:00)
[2018-01-07] MEDS: METRONIDAZOLE 500 MG/NS RTU 500 MG/100 ML RTUPB IV SCH ×2 (14:19→21:29)
[2018-01-07 16:01] LABS: ABSOLUTE BASOPHILS # (AUTO) 0.1 10^3/uL (0.0-0.2); ABSOLUTE EOSINOPHILS # (AUTO) 0.1 10^3/uL (0.0-0.6); ABSOLUTE MONOCYTES (AUTO) 0.5 10^3/uL (0.1-1.4); ABSOLUTE NEUT (AUTO) 5.1 10^3/uL (1.7-8.2); BASOPHILS % (AUTO) 0.8 % (0-2); EOSINOPHILS % (AUTO) 1.6 % (0-6); HEMATOCRIT 30.2 % (36.0-47.0); HEMOGLOBIN 9.5 g/dL (12.0-15.5); LYMPHOCYTES % (AUTO) 25.9 % (13-45); MEAN CORPUSCULAR HGB CONC 31.5 g/dL (32.0-36.0); MEAN CORPUSCULAR VOLUME 76 fl (80-97); MONOCYTES % (AUTO) 6.3 % (3-13); PLATELET COUNT 249 10^3/uL (150-450); RED BLOOD COUNT 3.96 10^6/uL (3.72-5.28); RED CELL DISTRIBUTION WIDTH 18.6 % (11.5-14.0); SEGMENTED NEUTROPHILS % (AUTO) 65.4 % (42-78); TOTAL CELLS COUNTED % (AUTO) 100 %; WHITE BLOOD COUNT 7.8 10^3/uL (4.0-10.5)
[2018-01-07] MEDS: CEFTRIAXONE SODIUM 1,000 MG in NORMAL SALINE 50 ML IV SCH (16:13)
[2018-01-07] MEDS: ENOXAPARIN SODIUM INJ 40 MG/0.4 ML DISP.SYRIN SUBCUT SCH (16:14)
[2018-01-07 17:04] LABS: ALANINE AMINOTRANSFERASE 22 U/L (9-52); ALBUMIN 3.4 g/dL (3.5-5.0); ALKALINE PHOSPHATASE 60 U/L (38-126); ANION GAP 9 (5-19); ASPARTATE AMINO TRANSFERASE 13 U/L (14-36); BILIRUBIN,DIRECT 0.4 mg/dL (0.0-0.4); BILIRUBIN,TOTAL 0.4 mg/dL (0.2-1.3); BLOOD UREA NITROGEN 8 mg/dL (7-20); CALCIUM 8.8 mg/dL (8.4-10.2); CARBON DIOXIDE 22 mmol/L (22-30); CHLORIDE 111 mmol/L (98-107); GLUCOSE 96 mg/dL (75-110); POTASSIUM 3.7 mmol/L (3.6-5.0); SODIUM 142.4 mmol/L (137-145); TOTAL PROTEIN 6.6 g/dL (6.3-8.2)
--- NOTE | 2018-01-07 17:13 | PDOC H&P ---
History of Present Illness Admission Date/PCP: 01/07/18 12:56 History of Present Illness: RAMONA CORMIER is a 27 year old female HTN, Anxiety and depression who presents today by EMS for Xanax and Trazodone overdose. She stated that she just "wanted to relax". She she was seen by psych and was going to be discharged home however but the nurse reported that she is coughing up some abnormal appearing sputum and her O2 sats have dropped into the upper 80s at times. She was placed on 3L of oxygen and her O2 sat is 95%. Chest x-ray was obtained and shows bronchovascular markings in the right base and increased density in the left retrocardiac area which could be atelectasis or minimal pneumonic infiltrate. Patient says when she overdosed she does not recall passing out or aspirating or having a seizure. She is complaining of coughing feeling very tired and sleepy otherwise she denies any chest pain, shortness of breath, nausea, vomiting, diarrhea, abdominal pain, and urinary symptoms Hospitalist was consulted for admission for possible aspiration versus bacterial pneumonia. Past Medical History Pulmonary Medical History: Reports: Asthma - inhalers if needed, Bronchitis Endocrine Medical History: Reports: Hypothyroidism GI Medical History: Reports: Gastroesophageal Reflux Disease Psychiatric Medical History: Reports: Depression Past Surgical History Past Surgical History: Reports: Section - X3, Cholecystectomy Social History Smoking Status: Current Every Day Smoker Cigarettes Packs Per Day: 1 Frequency of Alcohol Use: Rare - Advance Directive Resuscitation Status: Full Code Family History Family History: Reviewed & Not Pertinent, Arthritis, Hyperlipidemia, Hypertension, Malignancy Parental Family History Reviewed: Yes Children Family History Reviewed: Yes Sibling(s) Family History Reviewed.: Yes Medication/Allergy Home Medications: No Home Medications 01/07/18 Allergies/Adverse Reactions: fish derived [Fish derived] Allergy (Severe, Verified 01/07/18 14:21) swelling Penicillins Allergy (Severe, Verified 01/07/18 14:21) hives, rash Shellfish * [Shellfish] Allergy (Severe, Verified 01/07/18 14:21) Hives Review of Systems Constitutional: ABSENT: chills, fever(s), headache(s), weight gain, weight loss Eyes: ABSENT: visual disturbances Ears: ABSENT: hearing changes Cardiovascular: ABSENT: chest pain, dyspnea on exertion, edema, orthropnea, palpitations Respiratory: ABSENT: cough, hemoptysis Gastrointestinal: ABSENT: abdominal pain, constipation, diarrhea, hematemesis, hematochezia, nausea, vomiting Genitourinary: ABSENT: dysuria, hematuria Musculoskeletal: ABSENT: joint swelling Integumentary: ABSENT: rash, wounds Neurological: ABSENT: abnormal gait, abnormal speech, confusion, dizziness, focal weakness, syncope Psychiatric: ABSENT: anxiety, depression, homidical ideation, suicidal ideation Endocrine: ABSENT: cold intolerance, heat intolerance, polydipsia, polyuria Hematologic/Lymphatic: ABSENT: easy bleeding, easy bruising Physical Exam Vital Signs: Temp Pulse Resp BP Pulse Ox 98.1 F 67 16 103/64 98 01/07/18 14:34 01/07/18 14:34 01/07/18 14:34 01/07/18 14:34 01/07/18 14:34 Intake & Output 01/06/18 01/07/18 01/08/18 06:59 06:59 06:59 Weight 84.8 kg General appearance: PRESENT: no acute distress, well-developed, well-nourished Head exam: PRESENT: atraumatic, normocephalic Eye exam: PRESENT: conjunctiva pink, EOMI, PERRLA. ABSENT: scleral icterus Ear exam: PRESENT: normal external ear exam Mouth exam: PRESENT: moist, tongue midline Neck exam: ABSENT: carotid bruit, JVD, lymphadenopathy, thyromegaly Respiratory exam: PRESENT: clear to auscultation rusty. ABSENT: rales, rhonchi, wheezes Cardiovascular exam: PRESENT: RRR. ABSENT: diastolic murmur, rubs, systolic murmur Pulses: PRESENT: normal dorsalis pedis pul Vascular exam: PRESENT: normal capillary refill GI/Abdominal exam: PRESENT: normal bowel sounds, soft. ABSENT: distended, guarding, mass, organolmegaly, rebound, tenderness Rectal exam: PRESENT: deferred Extremities exam: PRESENT: full ROM. ABSENT: calf tenderness, clubbing, pedal edema Neurological exam: PRESENT: alert, awake, oriented to person, oriented to place , oriented to time, oriented to situation, CN II-XII grossly intact. ABSENT: motor sensory deficit Psychiatric exam: PRESENT: appropriate affect, normal mood. ABSENT: homicidal ideation, suicidal ideation Skin exam: PRESENT: dry, intact, warm. ABSENT: cyanosis, rash Results Laboratory Results: 01/07/18 15:15 01/07/18 15:15 WBC 7.8 RBC 3.96 Hgb 9.5 L Hct 30.2 L MCV 76 L MCH 24.0 L MCHC 31.5 L RDW 18.6 H Plt Count 249 Seg Neutrophils % 65.4 Lymphocytes % 25.9 Monocytes % 6.3 Eosinophils % 1.6 Basophils % 0.8 Absolute Neutrophils 5.1 Absolute Lymphocytes 2.0 Absolute Monocytes 0.5 Absolute Eosinophils 0.1 Absolute Basophils 0.1 Impressions: Chest X-Ray 01/07/18 10:08 IMPRESSION: Bibasilar densities as noted above. Remaining lung burton are clear. Other findings as noted above Assessment & Plan - Diagnosis (1) Aspiration pneumonia Is this a current diagnosis for this admission?: Yes Plan: Chemical pneumonitis versus bacterial aspiration pneumonia. Patient is allergic to penicillin. Will start on IV metronidazole 500 3 times daily and ceftriaxone IV. (2) Overdose Qualifiers: Encounter type: initial encounter Injury intent: intentional self-harm Qualified Code(s): T50.902A - Poisoning by unspecified drugs, medicaments and biological substances, intentional self-harm, initial encounter Is this a current diagnosis for this admission?: Yes Plan: Psychology on board monitor for withdrawals. (3) Cigarette smoker within last 12 months Is this a current diagnosis for this admission?: Yes Plan: Advised on quitting. Started on nicotine patch. (4) UTI (urinary tract infection) Is this a current diagnosis for this admission?: Yes Plan: Urine culture growing gram-negative no sensitivity available. Continue IV ceftriaxone.
[2018-01-07] MEDS: NICOTINE 7 MG/24 HR PATCH.TD24 TD SCH (17:52)
[2018-01-07] MEDS ORDERED: CEFTRIAXONE SODIUM 1,000 MG in NORMAL SALINE 50 ML IV SCH (22:00)
[2018-01-08] MEDS ORDERED: TRAMADOL HCL 50 MG TABLET PO ONE (04:00)
[2018-01-08] MEDS: METRONIDAZOLE 500 MG/NS RTU 500 MG/100 ML RTUPB IV SCH ×3 (05:11→21:10)
[2018-01-08] MEDS: LANSOPRAZOLE 30 MG TAB.RAP.DR PO SCH (05:12)
[2018-01-08] MEDS: ENOXAPARIN SODIUM INJ 40 MG/0.4 ML DISP.SYRIN SUBCUT SCH (10:01)
--- NOTE | 2018-01-08 13:24 | PDOC PROGRESS REPORT ---
Subjective Progress Note for:: 01/08/18 Subjective:: No acute events overnight. Patient states was not able to sleep because of too many visitors. Patient is more alert and awake today and cooperates with physical examination. She denies any shortness of breath, chest pain, nausea, cough, diarrhea, abdominal pain, vomiting, any urinary symptoms Reason For Visit: PNEUMONIA Physical Exam Vital Signs: Temp Pulse Resp BP Pulse Ox 98.2 F 74 16 119/79 100 01/08/18 12:20 01/08/18 12:20 01/08/18 12:20 01/08/18 12:20 01/08/18 12:20 Pulse Oximeter Continuous Start: 01/07/18 13: 10 Freq: RTQ4 Status: Active Document 01/08/18 11:24 [facility] (Rec: 01/08/18 11:24 [facility] [id number]) Pulse Oximetry Assessment Oxygen Saturation (92-100) 98 Oxygen Flow Rate (L/min) 2 Oxygen Delivery Method Nasal Cannula Fraction of Inspired Oxygen (FIO2) 28 Equipment Usage Equipment in Use Continuous SpO2 Machine # [id number] Pulse Oximeter Continuous Start: 01/07/18 13: 12 Freq: RTQ4 Status: Complete Document 01/07/18 18:58 [facility] (Rec: 01/07/18 18:59 [facility] [id number]) Intake & Output 01/07/18 01/08/18 01/09/18 06:59 06:59 06:59 Intake Total 741 Balance 741 Weight 87.7 kg General appearance: PRESENT: no acute distress, well-developed, well-nourished Head exam: PRESENT: atraumatic, normocephalic Eye exam: PRESENT: conjunctiva pink, EOMI, PERRLA. ABSENT: scleral icterus Ear exam: PRESENT: normal external ear exam Mouth exam: PRESENT: moist, tongue midline Neck exam: ABSENT: carotid bruit, JVD, lymphadenopathy, thyromegaly Respiratory exam: PRESENT: clear to auscultation rusty. ABSENT: rales, rhonchi, wheezes Cardiovascular exam: PRESENT: RRR. ABSENT: diastolic murmur, rubs, systolic murmur Pulses: PRESENT: normal dorsalis pedis pul Vascular exam: PRESENT: normal capillary refill GI/Abdominal exam: PRESENT: normal bowel sounds, soft. ABSENT: distended, guarding, mass, organolmegaly, rebound, tenderness Rectal exam: PRESENT: deferred Extremities exam: PRESENT: full ROM. ABSENT: calf tenderness, clubbing, pedal edema Neurological exam: PRESENT: alert, awake, oriented to person, oriented to place , oriented to time, oriented to situation, CN II-XII grossly intact. ABSENT: motor sensory deficit Psychiatric exam: PRESENT: appropriate affect, normal mood. ABSENT: homicidal ideation, suicidal ideation Skin exam: PRESENT: dry, intact, warm. ABSENT: cyanosis, rash Results Laboratory Results: 01/07/18 15:15 01/07/18 15:15 01/07/18 01/07/18 15:15 15:15 WBC 7.8 RBC 3.96 Hgb 9.5 L Hct 30.2 L MCV 76 L MCH 24.0 L MCHC 31.5 L RDW 18.6 H Plt Count 249 Seg Neutrophils % 65.4 Lymphocytes % 25.9 Monocytes % 6.3 Eosinophils % 1.6 Basophils % 0.8 Absolute Neutrophils 5.1 Absolute Lymphocytes 2.0 Absolute Monocytes 0.5 Absolute Eosinophils 0.1 Absolute Basophils 0.1 Sodium 142.4 Potassium 3.7 Chloride 111 H Carbon Dioxide 22 Anion Gap 9 BUN 8 Creatinine 0.78 Est GFR ( Amer) > 60 Est GFR (Non-Af Amer) > 60 Glucose 96 Calcium 8.8 Total Bilirubin 0.4 AST 13 L ALT 22 Alkaline Phosphatase 60 Total Protein 6.6 Albumin 3.4 L Impressions: Chest X-Ray 01/07/18 10:08 IMPRESSION: Bibasilar densities as noted above. Remaining lung burton are clear. Other findings as noted above Assessment & Plan - Diagnosis (1) Aspiration pneumonia Is this a current diagnosis for this admission?: Yes Plan: Chemical pneumonitis versus bacterial aspiration pneumonia. Patient is allergic to penicillin. Will start on IV metronidazole 500 3 times daily and ceftriaxone IV. (2) Overdose Qualifiers: Encounter type: initial encounter Injury intent: intentional self-harm Qualified Code(s): T50.902A - Poisoning by unspecified drugs, medicaments and biological substances, intentional self-harm, initial encounter Is this a current diagnosis for this admission?: Yes Plan: Psychology on board monitor for withdrawals. Pending psychiatry recommendation for disposition. (3) Cigarette smoker within last 12 months Is this a current diagnosis for this admission?: Yes Plan: Advised on quitting. Started on nicotine patch. (4) UTI (urinary tract infection) Is this a current diagnosis for this admission?: Yes Plan: Urine culture growing gram-negative no sensitivity available. Continue IV ceftriaxone.
[2018-01-08] MEDS: CEFTRIAXONE SODIUM 1,000 MG in NORMAL SALINE 50 ML IV SCH (16:01)
--- NOTE | 2018-01-08 16:58 | PSYCHOLOGICAL NOTE ---
Psych Note - Psych Note Psych Note: Reason for Consult: Intentional Overdose Clinician conducted check in with patient. Patient was sitting upright and visiting with a friend who drove in from [place], [place]. Patient states that she feels much better today. Patient states that she was able to get some rest. Patient denies wanting to kill herself but states that she was "stressed out" and just wanted to "go to sleep". Patient reports that she has been under alot of pressure since loosing her job at [employer]. Patient is looking for work and is optimistic about being able to find a job. Patient states that she feels "stupid" for taking the pills so this Clinician engaged the patient with brainstorming on ways to respond to feelings of hopelessness. Patient identified her Mom, who lives just a few doors down from her as the first person that she would reach out to if she were able to feel this way again. Patient states that she also has a anglican family that is supportive of her and her children. Patient states that she is interested in outpatient therapy but does not have insurance. This Clinician gave patient information on [facility] for follow up. Patient is alert, oriented to person, place, time and circumstance. Mood is euthymic with a flat affect. Patient denies suicidal ideation. Patient denies homicidal ideation. Patient has an intact reality based presentation, organized and linear thought process. Conversational speech is normal rate and tone. Intellectual abilities appear to be in the average range. Attention and concentration is fair. Insight, judgment, impulse control are fair. Diagnosis: 311 (F32.9) unspecified depressive disorder Impression/Plan: Patient is recommended to continue IVC. Patient disclosed an intentional overdose. [facility] team is actively looking for placement. Patient will be re-evaluated. Dr. Ball was consulted in the care management of this patient; attending physician is in agreement with recommendations and disposition.
[2018-01-08] MEDS: NICOTINE 7 MG/24 HR PATCH.TD24 TD SCH (17:06)
[2018-01-08] MEDS ORDERED: GUAIFENESIN SYRP 200 MG/10 ML UDC PO PRN (20:03)
[2018-01-08] MEDS ORDERED: DIPHENHYDRAMINE HCL 25 MG CAPSULE PO ONE (21:30)
[2018-01-09 05:40] LABS: ABSOLUTE BASOPHILS # (AUTO) 0.1 10^3/uL (0.0-0.2); ABSOLUTE EOSINOPHILS # (AUTO) 0.2 10^3/uL (0.0-0.6); ABSOLUTE LYMPHOCYTES (AUTO) 2.2 10^3/uL (0.5-4.7); ABSOLUTE MONOCYTES (AUTO) 0.4 10^3/uL (0.1-1.4); ABSOLUTE NEUT (AUTO) 3.9 10^3/uL (1.7-8.2); BASOPHILS % (AUTO) 0.9 % (0-2); EOSINOPHILS % (AUTO) 2.7 % (0-6); HEMATOCRIT 28.7 % (36.0-47.0); HEMOGLOBIN 9.1 g/dL (12.0-15.5); MEAN CORPUSCULAR HGB CONC 31.8 g/dL (32.0-36.0); MEAN CORPUSCULAR VOLUME 76 fl (80-97); MONOCYTES % (AUTO) 6.3 % (3-13); PLATELET COUNT 177 10^3/uL (150-450); RED CELL DISTRIBUTION WIDTH 18.1 % (11.5-14.0); SEGMENTED NEUTROPHILS % (AUTO) 58.1 % (42-78); TOTAL CELLS COUNTED % (AUTO) 100 %; WHITE BLOOD COUNT 6.7 10^3/uL (4.0-10.5)
[2018-01-09 06:07] LABS: ALANINE AMINOTRANSFERASE 22 U/L (9-52); ALKALINE PHOSPHATASE 50 U/L (38-126); ANION GAP 7 (5-19); ASPARTATE AMINO TRANSFERASE 12 U/L (14-36); BILIRUBIN,DIRECT 0.2 mg/dL (0.0-0.4); BILIRUBIN,TOTAL 0.2 mg/dL (0.2-1.3); BLOOD UREA NITROGEN 6 mg/dL (7-20); CALCIUM 8.8 mg/dL (8.4-10.2); CARBON DIOXIDE 22 mmol/L (22-30); CHLORIDE 111 mmol/L (98-107); GLUCOSE 95 mg/dL (75-110); POTASSIUM 3.5 mmol/L (3.6-5.0); SODIUM 139.9 mmol/L (137-145)
[2018-01-09] MEDS: LANSOPRAZOLE 30 MG TAB.RAP.DR PO SCH (06:11)
[2018-01-09] MEDS: METRONIDAZOLE 500 MG/NS RTU 500 MG/100 ML RTUPB IV SCH ×3 (10:06→21:00)
[2018-01-09] MEDS: FERROUS SULFATE 325 MG TABLET PO SCH ×2 (10:06→17:49)
[2018-01-09] MEDS: ENOXAPARIN SODIUM INJ 40 MG/0.4 ML DISP.SYRIN SUBCUT SCH (10:06)
--- NOTE | 2018-01-09 11:08 | PDOC PROGRESS REPORT ---
Subjective Progress Note for:: 01/09/18 Subjective:: No acute events overnight. Patient says she is feeling much better today. Denies any shortness of breath or chest pain. She is very alert and oriented and cooperating for physical examination. She denies any shortness of breath, chest pain, nausea, cough, diarrhea, abdominal pain, vomiting, any urinary symptoms Reason For Visit: PNEUMONIA Physical Exam Vital Signs: Temp Pulse Resp BP Pulse Ox 98.2 F 50 L 20 142/71 H 96 01/09/18 07:30 01/09/18 07:30 01/09/18 07:30 01/09/18 07:30 01/09/18 07:40 Pulse Oximeter Continuous Start: 01/07/18 13: 10 Freq: RTQ4 Status: Active Document 01/09/18 07:40 [facility] (Rec: 01/09/18 09:56 [facility] [id number]) Pulse Oximetry Assessment Equipment Usage Equipment Standby Continuous SpO2 Machine # 3 Pulse Oximeter Continuous Start: 01/07/18 13: 12 Freq: RTQ4 Status: Complete Document 01/07/18 18:58 [facility] (Rec: 01/07/18 18:59 [facility] [id number]) Intake & Output 01/08/18 01/09/18 01/10/18 06:59 06:59 06:59 Intake Total 741 1436 Balance 741 1436 Weight 87.7 kg 88 kg General appearance: PRESENT: no acute distress, well-developed, well-nourished Head exam: PRESENT: atraumatic, normocephalic Eye exam: PRESENT: conjunctiva pink, EOMI, PERRLA. ABSENT: scleral icterus Ear exam: PRESENT: normal external ear exam Mouth exam: PRESENT: moist, tongue midline Neck exam: ABSENT: carotid bruit, JVD, lymphadenopathy, thyromegaly Respiratory exam: PRESENT: clear to auscultation rusty. ABSENT: rales, rhonchi, wheezes Cardiovascular exam: PRESENT: RRR. ABSENT: diastolic murmur, rubs, systolic murmur Pulses: PRESENT: normal dorsalis pedis pul Vascular exam: PRESENT: normal capillary refill GI/Abdominal exam: PRESENT: normal bowel sounds, soft. ABSENT: distended, guarding, mass, organolmegaly, rebound, tenderness Rectal exam: PRESENT: deferred Extremities exam: PRESENT: full ROM. ABSENT: calf tenderness, clubbing, pedal edema Neurological exam: PRESENT: alert, awake, oriented to person, oriented to place , oriented to time, oriented to situation, CN II-XII grossly intact. ABSENT: motor sensory deficit Psychiatric exam: PRESENT: appropriate affect, normal mood. ABSENT: homicidal ideation, suicidal ideation Skin exam: PRESENT: dry, intact, warm. ABSENT: cyanosis, rash Results Laboratory Results: 01/09/18 05:20 01/09/18 05:20 01/09/18 01/09/18 05:20 05:20 WBC 6.7 RBC 3.80 Hgb 9.1 L Hct 28.7 L MCV 76 L MCH 24.0 L MCHC 31.8 L RDW 18.1 H Plt Count 177 Seg Neutrophils % 58.1 Lymphocytes % 32.0 Monocytes % 6.3 Eosinophils % 2.7 Basophils % 0.9 Absolute Neutrophils 3.9 Absolute Lymphocytes 2.2 Absolute Monocytes 0.4 Absolute Eosinophils 0.2 Absolute Basophils 0.1 Sodium 139.9 Potassium 3.5 L Chloride 111 H Carbon Dioxide 22 Anion Gap 7 BUN 6 L Creatinine 0.69 Est GFR ( Amer) > 60 Est GFR (Non-Af Amer) > 60 Glucose 95 Calcium 8.8 Total Bilirubin 0.2 AST 12 L ALT 22 Alkaline Phosphatase 50 Total Protein 6.0 L Albumin 3.0 L Impressions: Chest X-Ray 01/07/18 10:08 IMPRESSION: Bibasilar densities as noted above. Remaining lung burton are clear. Other findings as noted above Assessment & Plan - Diagnosis (1) Aspiration pneumonia Is this a current diagnosis for this admission?: Yes Plan: Chemical pneumonitis versus bacterial aspiration pneumonia. Patient is allergic to penicillin. Will start on IV metronidazole 500 3 times daily and ceftriaxone IV. Patient is improving quite significantly she is medically optimized if she is required to be transferred to an inpatient psych. (2) Overdose Qualifiers: Encounter type: initial encounter Injury intent: intentional self-harm Qualified Code(s): T50.902A - Poisoning by unspecified drugs, medicaments and biological substances, intentional self-harm, initial encounter Is this a current diagnosis for this admission?: Yes Plan: Psychology on board monitor for withdrawals. Pending psychiatry recommendation for disposition. (3) Cigarette smoker within last 12 months Is this a current diagnosis for this admission?: Yes Plan: Advised on quitting. Started on nicotine patch. (4) UTI (urinary tract infection) Is this a current diagnosis for this admission?: Yes Plan: Urine culture growing gram-negative no sensitivity available. Continue IV ceftriaxone.
[2018-01-09] MEDS: LORAZEPAM 1 MG TABLET PO PRN ×2 (14:09→22:19)
[2018-01-09] MEDS: CEFTRIAXONE SODIUM 1,000 MG in NORMAL SALINE 50 ML IV SCH (15:52)
[2018-01-09] MEDS: NICOTINE 7 MG/24 HR PATCH.TD24 TD SCH (17:49)
[2018-01-10] MEDS: METRONIDAZOLE 500 MG/NS RTU 500 MG/100 ML RTUPB IV SCH (05:25)
[2018-01-10] MEDS: LANSOPRAZOLE 30 MG TAB.RAP.DR PO SCH (05:25)
[2018-01-10 05:36] LABS: ABSOLUTE BASOPHILS # (AUTO) 0.1 10^3/uL (0.0-0.2); ABSOLUTE EOSINOPHILS # (AUTO) 0.1 10^3/uL (0.0-0.6); ABSOLUTE LYMPHOCYTES (AUTO) 2.1 10^3/uL (0.5-4.7); ABSOLUTE MONOCYTES (AUTO) 0.4 10^3/uL (0.1-1.4); ABSOLUTE NEUT (AUTO) 4.1 10^3/uL (1.7-8.2); BASOPHILS % (AUTO) 0.9 % (0-2); HEMATOCRIT 28.3 % (36.0-47.0); HEMOGLOBIN 9.1 g/dL (12.0-15.5); LYMPHOCYTES % (AUTO) 30.9 % (13-45); MEAN CORPUSCULAR HEMOGLOBIN 24.1 pg (27.0-33.4); MEAN CORPUSCULAR HGB CONC 32.1 g/dL (32.0-36.0); MEAN CORPUSCULAR VOLUME 75 fl (80-97); MONOCYTES % (AUTO) 5.9 % (3-13); PLATELET COUNT 176 10^3/uL (150-450); RED BLOOD COUNT 3.76 10^6/uL (3.72-5.28); SEGMENTED NEUTROPHILS % (AUTO) 60.3 % (42-78); TOTAL CELLS COUNTED % (AUTO) 100 %; WHITE BLOOD COUNT 6.9 10^3/uL (4.0-10.5)
[2018-01-10 06:09] LABS: ALANINE AMINOTRANSFERASE 17 U/L (9-52); ALBUMIN 3.1 g/dL (3.5-5.0); ALKALINE PHOSPHATASE 48 U/L (38-126); ASPARTATE AMINO TRANSFERASE 22 U/L (14-36); BILIRUBIN,DIRECT 0.1 mg/dL (0.0-0.4); BILIRUBIN,TOTAL 0.1 mg/dL (0.2-1.3); BLOOD UREA NITROGEN 6 mg/dL (7-20); CALCIUM 8.5 mg/dL (8.4-10.2); CARBON DIOXIDE 25 mmol/L (22-30); CHLORIDE 107 mmol/L (98-107); GLUCOSE 88 mg/dL (75-110); POTASSIUM 3.5 mmol/L (3.6-5.0)
[2018-01-10 06:21] LABS: ANION GAP 6 (5-19); SODIUM 137.9 mmol/L (137-145)
[2018-01-10] MEDS: FERROUS SULFATE 325 MG TABLET PO SCH ×2 (08:45→17:24)
[2018-01-10] MEDS: LORAZEPAM 1 MG TABLET PO PRN (08:45)
--- NOTE | 2018-01-10 11:44 | PDOC PROGRESS REPORT ---
Subjective Progress Note for:: 01/10/18 Subjective:: No acute events overnight. Patient is sitting that she is feeling great today. She is very alert and oriented and cooperating for physical examination. She denies any shortness of breath, chest pain, nausea, cough, diarrhea, abdominal pain, vomiting, any urinary symptoms Reason For Visit: PNEUMONIA Physical Exam Vital Signs: Temp Pulse Resp BP Pulse Ox 97.9 F 102 H 16 125/81 100 01/10/18 07:16 01/10/18 07:16 01/10/18 07:16 01/10/18 07:16 01/10/18 07:16 Pulse Oximeter Continuous Start: 01/07/18 13: 10 Freq: RTQ4 Status: Complete Document 01/09/18 14:04 [facility] (Rec: 01/09/18 14:04 [facility] [id number]) Pulse Oximetry Assessment Equipment Usage Equipment Discontinued Continuous SpO2 Machine # 3 Pulse Oximeter Continuous Start: 01/07/18 13: 12 Freq: RTQ4 Status: Complete Document 01/07/18 18:58 [facility] (Rec: 01/07/18 18:59 [facility] [id number]) Intake & Output 01/09/18 01/10/18 01/11/18 06:59 06:59 06:59 Intake Total 1486 1579 Balance 1486 1579 Weight 88 kg 86.5 kg General appearance: PRESENT: no acute distress, well-developed, well-nourished Head exam: PRESENT: atraumatic, normocephalic Eye exam: PRESENT: conjunctiva pink, EOMI, PERRLA. ABSENT: scleral icterus Ear exam: PRESENT: normal external ear exam Mouth exam: PRESENT: moist, tongue midline Neck exam: ABSENT: carotid bruit, JVD, lymphadenopathy, thyromegaly Respiratory exam: PRESENT: clear to auscultation rusty. ABSENT: rales, rhonchi, wheezes Cardiovascular exam: PRESENT: RRR. ABSENT: diastolic murmur, rubs, systolic murmur Pulses: PRESENT: normal dorsalis pedis pul Vascular exam: PRESENT: normal capillary refill GI/Abdominal exam: PRESENT: normal bowel sounds, soft. ABSENT: distended, guarding, mass, organolmegaly, rebound, tenderness Rectal exam: PRESENT: deferred Extremities exam: PRESENT: full ROM. ABSENT: calf tenderness, clubbing, pedal edema Neurological exam: PRESENT: alert, awake, oriented to person, oriented to place , oriented to time, oriented to situation, CN II-XII grossly intact. ABSENT: motor sensory deficit Psychiatric exam: PRESENT: appropriate affect, normal mood. ABSENT: homicidal ideation, suicidal ideation Skin exam: PRESENT: dry, intact, warm. ABSENT: cyanosis, rash Results Laboratory Results: 01/10/18 05:25 01/10/18 05:25 01/10/18 01/10/18 05:25 05:25 WBC 6.9 RBC 3.76 Hgb 9.1 L Hct 28.3 L MCV 75 L MCH 24.1 L MCHC 32.1 RDW 18.0 H Plt Count 176 Seg Neutrophils % 60.3 Lymphocytes % 30.9 Monocytes % 5.9 Eosinophils % 2.0 Basophils % 0.9 Absolute Neutrophils 4.1 Absolute Lymphocytes 2.1 Absolute Monocytes 0.4 Absolute Eosinophils 0.1 Absolute Basophils 0.1 Sodium 137.9 Potassium 3.5 L Chloride 107 Carbon Dioxide 25 Anion Gap 6 BUN 6 L Creatinine 0.64 Est GFR ( Amer) > 60 Est GFR (Non-Af Amer) > 60 Glucose 88 Calcium 8.5 Total Bilirubin 0.1 L AST 22 ALT 17 Alkaline Phosphatase 48 Total Protein 6.0 L Albumin 3.1 L Impressions: Chest X-Ray 01/07/18 10:08 IMPRESSION: Bibasilar densities as noted above. Remaining lung burton are clear. Other findings as noted above Assessment & Plan - Diagnosis (1) Aspiration pneumonia Is this a current diagnosis for this admission?: Yes Plan: Chemical pneumonitis versus bacterial aspiration pneumonia. Patient is allergic to penicillin. Will start on IV metronidazole 500 3 times daily and ceftriaxone IV. Asymptomatic patient has received 3 days of antibiotics . Medically optimized if she is required to be transferred to an inpatient psych. (2) Overdose Qualifiers: Encounter type: initial encounter Injury intent: intentional self-harm Qualified Code(s): T50.902A - Poisoning by unspecified drugs, medicaments and biological substances, intentional self-harm, initial encounter Is this a current diagnosis for this admission?: Yes Plan: Psychology on board monitor for withdrawals. Pending psychiatry recommendation for disposition. (3) Cigarette smoker within last 12 months Is this a current diagnosis for this admission?: Yes Plan: Advised on quitting. Started on nicotine patch. (4) UTI (urinary tract infection) Is this a current diagnosis for this admission?: Yes Plan: Urine culture growing gram-negative no sensitivity available. Patient is already on ceftriaxone IV for possible chemical pneumonitis/aspiration pneumonia. Asymptomatic (5) Anemia Qualifiers: Anemia type: iron deficiency Is this a current diagnosis for this admission?: Yes Plan: Last menstrual period about 3-4 days ago. Patient states that usually she has heavy menstruation bleeding. Started on p.o. ferrous sulfate. Follow-up with PCP. Denies any hematochezia hemoptysis or hematemesis.
[2018-01-10] MEDS: CEFTRIAXONE SODIUM 1,000 MG in NORMAL SALINE 50 ML IV SCH (13:38)
[2018-01-10] MEDS: ENOXAPARIN SODIUM INJ 40 MG/0.4 ML DISP.SYRIN SUBCUT SCH (13:43)
[2018-01-10 13:54] VITALS: BP 141/98
[2018-01-10] MEDS ORDERED: METRONIDAZOLE 500 MG TABLET PO SCH (14:00)
--- NOTE | 2018-01-10 14:40 | PSYCHOLOGICAL NOTE ---
Psych Note - Psych Note Psych Note: Reason for Consult: Intentional Overdose Patient's friend, Jacqui, at bedside per patient's request; who drove in from [place], [place] Clinician conducted check in with patient Patient discloses that she feels "very stupid" and was told that she did have a very bad UTI with bacteria in addition to the pneumonia. She believes that feeling so sick may have lowered her ability to cope. She reports that she already has made arrangements that she will be in staying with her mother in addition to her friend will be staying for 1 month with them also. Patient's friend cat, states that she will be part of the patient's discharge plan to ensure she does not have access to medications or weapons and follows through with mental health recommendations. Patient reports that she has plenty of medications on hand and does not need to take trazodone or Xanax so has no concern about running out during the storm. She has been a long time patient with [facility]. She reports that she has started praying again as a coping skill in addition to doing crossword puzzles and reading. Diagnosis: 311 (F32.9) unspecified depressive disorder Impression/Plan: Patient is recommended to rescind IVC and is cleared from acute psychiatric services. Patient no longer meets IVC criteria per [place] GS 120 2C. Patient had euthymic mood with congruent affect. Patient openly engaged with clinician and demonstrated forward thinking and problem-solving skills. Patient has both her mother and friend as a strong support network and discloses she will be staying with her mom for the foreseeable future in addition to her friend staying for 1 month. Both confirmed they will be part of discharge plan i.e. ensure the patient does not have access to medications or weapons and follows through with mental health recommendations. Patient reports she has plenty of her her medications on hand which include Prozac and Concerta stating that she did not need to take any trazodone or Xanax ( medications patient overdosed on). Patient is recommended to follow-up with her outpatient mental health service provider, [facility] next week. Dr. Ball was consulted in the care management of this patient; attending physician is in agreement with recommendations and disposition.
--- NOTE | 2018-01-10 18:01 | PDOC DISCHARGE SUMMARY ---
General - Admit/Disc Date/PCP Admission Date/Primary Care Provider: 01/07/18 12:56 Discharge Date: 01/10/18 - Discharge Diagnosis (1) Aspiration pneumonia Is this a current diagnosis for this admission?: Yes Summary: Chemical pneumonitis versus bacterial aspiration pneumonia. Patient is allergic to penicillin. She received a total of 3 days of IV metronidazole 500 mg 3 times daily and ceftriaxone 1 g daily. Asymptomatic on the day of discharge. Blood cultures negative (2) Overdose Is this a current diagnosis for this admission?: Yes Summary: IVC was rescinded as per psych recommendation. Patient was discharged home as per psych recommendation. (3) Cigarette smoker within last 12 months Is this a current diagnosis for this admission?: Yes Summary: Advised on quitting smoking. Was started on nicotine patch during inpatient hospitalization. (4) UTI (urinary tract infection) Is this a current diagnosis for this admission?: Yes Summary: Caused by E. coli pansensitive except for ampicillin and Bactrim. Patient received 3 days of IV ceftriaxone 1 mg daily. Asymptomatic. (5) Anemia Is this a current diagnosis for this admission?: Yes Summary: Likely due to heavy menstrual periods. Last menstrual period 3-4 days ago. Patient was discharged on p.o. ferrous sulfate twice daily. - Additional Information Resuscitation Status: Full Code Discharge Diet: As Tolerated Discharge Activity: Activity As Tolerated Prescriptions: Ferrous Sulfate [Feosol 325 mg Tablet] 325 mg PO BIDPCBS 30 Days #60 tablet Home Medications: Ferrous Sulfate [Feosol 325 mg Tablet] 325 mg PO BIDPCBS 30 Days #60 tablet 02/17 History of Present Illness History of Present Illness: RAMONA CORMIER is a 27 year old female HTN, Anxiety and depression who presents today by EMS for Xanax and Trazodone overdose. She stated that she just "wanted to relax". She she was seen by psych and was going to be discharged home however but the nurse reported that she is coughing up some abnormal appearing sputum and her O2 sats have dropped into the upper 80s at times. She was placed on 3L of oxygen and her O2 sat is 95%. Chest x-ray was obtained and shows bronchovascular markings in the right base and increased density in the left retrocardiac area which could be atelectasis or minimal pneumonic infiltrate. Patient says when she overdosed she does not recall passing out or aspirating or having a seizure. She is complaining of coughing feeling very tired and sleepy otherwise she denies any chest pain, shortness of breath, nausea, vomiting, diarrhea, abdominal pain, and urinary symptoms Hospitalist was consulted for admission for possible aspiration versus bacterial pneumonia. Physical Exam Vital Signs: Temp Pulse Resp BP Pulse Ox 98.1 F 54 L 16 141/98 H 100 01/10/18 13:28 01/10/18 13:28 01/10/18 13:28 01/10/18 13:28 01/10/18 13:28 Pulse Oximeter Continuous Start: 01/07/18 13: 10 Freq: RTQ4 Status: Complete Document 01/09/18 14:04 HCR (Rec: 01/09/18 14:04 HCR [id number]) Pulse Oximetry Assessment Equipment Usage Equipment Discontinued Continuous SpO2 Machine # 3 Pulse Oximeter Continuous Start: 01/07/18 13: 12 Freq: RTQ4 Status: Complete Document 01/07/18 18:58 [facility] (Rec: 01/07/18 18:59 [facility] [id number]) Intake & Output 01/09/18 01/10/18 01/11/18 06:59 06:59 06:59 Intake Total 1486 1629 Balance 1486 1629 Weight 88 kg 86.5 kg General appearance: PRESENT: no acute distress, well-developed, well-nourished Head exam: PRESENT: atraumatic, normocephalic Eye exam: PRESENT: conjunctiva pink, EOMI, PERRLA. ABSENT: scleral icterus Ear exam: PRESENT: normal external ear exam Mouth exam: PRESENT: moist, tongue midline Neck exam: ABSENT: carotid bruit, JVD, lymphadenopathy, thyromegaly Respiratory exam: PRESENT: clear to auscultation rusty. ABSENT: rales, rhonchi, wheezes Cardiovascular exam: PRESENT: RRR. ABSENT: diastolic murmur, rubs, systolic murmur Pulses: PRESENT: normal dorsalis pedis pul Vascular exam: PRESENT: normal capillary refill GI/Abdominal exam: PRESENT: normal bowel sounds, soft. ABSENT: distended, guarding, mass, organolmegaly, rebound, tenderness Rectal exam: PRESENT: deferred Extremities exam: PRESENT: full ROM. ABSENT: calf tenderness, clubbing, pedal edema Neurological exam: PRESENT: alert, awake, oriented to person, oriented to place , oriented to time, oriented to situation, CN II-XII grossly intact. ABSENT: motor sensory deficit Psychiatric exam: PRESENT: appropriate affect, normal mood. ABSENT: homicidal ideation, suicidal ideation Skin exam: PRESENT: dry, intact, warm. ABSENT: cyanosis, rash Results Laboratory Results: 01/10/18 05:25 01/10/18 05:25 01/10/18 01/10/18 05:25 05:25 WBC 6.9 RBC 3.76 Hgb 9.1 L Hct 28.3 L MCV 75 L MCH 24.1 L MCHC 32.1 RDW 18.0 H Plt Count 176 Seg Neutrophils % 60.3 Lymphocytes % 30.9 Monocytes % 5.9 Eosinophils % 2.0 Basophils % 0.9 Absolute Neutrophils 4.1 Absolute Lymphocytes 2.1 Absolute Monocytes 0.4 Absolute Eosinophils 0.1 Absolute Basophils 0.1 Sodium 137.9 Potassium 3.5 L Chloride 107 Carbon Dioxide 25 Anion Gap 6 BUN 6 L Creatinine 0.64 Est GFR ( Amer) > 60 Est GFR (Non-Af Amer) > 60 Glucose 88 Calcium 8.5 Total Bilirubin 0.1 L AST 22 ALT 17 Alkaline Phosphatase 48 Total Protein 6.0 L Albumin 3.1 L Impressions: Chest X-Ray 01/07/18 10:08 IMPRESSION: Bibasilar densities as noted above. Remaining lung burton are clear. Other findings as noted above Qualifiers - * PATIENT BEING DISCHARGED WITH ANY OF THE FOLLOWING DIAGNOSIS: No VTE patient discharged on overlapping Therapy?: Yes
[2018-01-11] MEDS ORDERED: LANSOPRAZOLE 30 MG TAB.RAP.DR PO SCH (06:00)
== END 2018-01-10 17:40 | disposition home or self-care (01) | DRG 917 ==
LOC: ER 17:36 → EH 01-07 12:56 → 5 01-07 14:30
PROVIDERS: ADMIT Internal Medicine; ATTEND Internal Medicine
DX: T42.4X2A Poisoning by benzodiazepines, intentional self-harm, initial encounter (principal); J69.0 Pneumonitis due to inhalation of food and vomit; N39.0 Urinary tract infection, site not specified; T43.212A Poisoning by selective serotonin and norepinephrine reuptake inhibitors, intentional self-harm, initial encounter; E03.9 Hypothyroidism, unspecified; F41.9 Anxiety disorder, unspecified; F32.9 Major depressive disorder, single episode, unspecified; J45.909 Unspecified asthma, uncomplicated; K21.9 Gastro-esophageal reflux disease without esophagitis; F17.210 Nicotine dependence, cigarettes, uncomplicated; B96.20 Unspecified Escherichia coli [E. coli] as the cause of diseases classified elsewhere; D64.9 Anemia, unspecified; I10 Essential (primary) hypertension; Y92.9 Unspecified place or not applicable; Z90.49 Acquired absence of other specified parts of digestive tract; Z88.0 Allergy status to penicillin; Z91.013 Allergy to seafood
CPT/HCPCS: 36415; 71046; 80053; 80307; 81001; 81025; 83735; 85025; 87040; 87086; 87088; 87186; 93005; 93010; 94762; 96365; 96366; 96368; 99291; J0696; J1650; J3475; J3490; J7030

== ENCOUNTER 2018-05-23 14:12 | Emergency (ER) | payer SELFPAY ==
[2018-05-23] MEDS ORDERED: METOCLOPRAMIDE HCL INJ/PF 10 MG/2 ML SDV IV ONE (15:20)
[2018-05-23] MEDS ORDERED: DIPHENHYDRAMINE HCL 50 MG/ML VIAL IV ONE (15:20)
[2018-05-23] MEDS ORDERED: NORMAL SALINE 1000 ML 1,000 ML IV ONE (15:20)
--- NOTE | 2018-05-23 15:21 | ER Document Report ---
ED Medical Screen (RME) - General Chief Complaint: Vomiting/Diarrhea Stated Complaint: VOMITING Time Seen by Provider: 05/23/18 15:15 Mode of Arrival: Wheelchair Information source: Patient Notes: This is a 27-year-old female presents to the emergency room with nausea, vomiting, diarrhea and upper abdominal pain for the past day. She denies fever. TRAVEL OUTSIDE OF THE [place] IN LAST 30 DAYS: No - Related Data Allergies/Adverse Reactions: fish derived [Fish derived] Allergy (Severe, Verified 05/23/18 14:14) swelling Penicillins Allergy (Severe, Verified 05/23/18 14:14) hives, rash Shellfish * [Shellfish] Allergy (Severe, Verified 05/23/18 14:14) Hives Past Medical History - Social History Frequency of alcohol use: None Drug Abuse: None Pulmonary Medical History: Reports: Hx Asthma - inhalers if needed, Hx Bronchitis Endocrine Medical History: Reports: Hx Hypothyroidism Renal/ Medical History: Denies: Hx Peritoneal Dialysis GI Medical History: Reports: Hx Gastroesophageal Reflux Disease Musculoskeltal Medical History: Reports Hx Musculoskeletal Deformity - Degenerative disc disease gentle joint disease and chronic back pain, Reports Hx Musculoskeletal Trauma Psychiatric Medical History: Reports: Hx Anxiety, Hx Depression Past Surgical History: Reports: Hx Section - X4, Hx Cholecystectomy - Immunizations Immunizations up to date: Yes Hx Diphtheria, Pertussis, Tetanus Vaccination: Yes Physical Exam - Vital signs Vitals: Temp Pulse Resp BP Pulse Ox 98 F 99 14 115/70 98 05/23/18 14:28 05/23/18 14:28 05/23/18 14:28 05/23/18 14:28 05/23/18 14:28 Course - Vital Signs Vital signs: Temp Pulse Resp BP Pulse Ox 98 F 99 14 115/70 98 05/23/18 14:28 05/23/18 14:28 05/23/18 14:28 05/23/18 14:28 05/23/18 14:28
[2018-05-23 15:52] LABS: ABSOLUTE EOSINOPHILS # (AUTO) 0.1 10^3/uL (0.0-0.6); ABSOLUTE LYMPHOCYTES (AUTO) 1.9 10^3/uL (0.5-4.7); ABSOLUTE MONOCYTES (AUTO) 0.4 10^3/uL (0.1-1.4); ABSOLUTE NEUT (AUTO) 10.3 10^3/uL (1.7-8.2); BASOPHILS % (AUTO) 0.3 % (0-2); EOSINOPHILS % (AUTO) 0.7 % (0-6); HEMATOCRIT 35.5 % (36.0-47.0); HEMOGLOBIN 11.2 g/dL (12.0-15.5); LYMPHOCYTES % (AUTO) 15.1 % (13-45); MEAN CORPUSCULAR HEMOGLOBIN 22.5 pg (27.0-33.4); MEAN CORPUSCULAR HGB CONC 31.4 g/dL (32.0-36.0); MEAN CORPUSCULAR VOLUME 72 fl (80-97); PLATELET COUNT 229 10^3/uL (150-450); RED BLOOD COUNT 4.95 10^6/uL (3.72-5.28); RED CELL DISTRIBUTION WIDTH 19.7 % (11.5-14.0); SEGMENTED NEUTROPHILS % (AUTO) 80.9 % (42-78); TOTAL CELLS COUNTED % (AUTO) 100 %; WHITE BLOOD COUNT 12.7 10^3/uL (4.0-10.5)
[2018-05-23 15:56] LABS: APPEARANCE,URINE CLEAR; BILIRUBIN,URINE NEGATIVE (NEGATIVE); COLOR,URINE YELLOW; GLUCOSE, URINE NEGATIVE (NEGATIVE); KETONES,URINE NEGATIVE (NEGATIVE); LEUKOCYTE ESTERASE,URINE NEGATIVE (NEGATIVE); NITRITE,URINE NEGATIVE (NEGATIVE); PROTEIN,URINE NEGATIVE (NEGATIVE); URINE SPECIFIC GRAVITY 1.014; UROBILINOGEN,URINE NEGATIVE mg/dL (<2.0)
[2018-05-23 16:13] LABS: ALANINE AMINOTRANSFERASE 27 U/L (9-52); ALBUMIN 4.7 g/dL (3.5-5.0); ALKALINE PHOSPHATASE 67 U/L (38-126); ANION GAP 12 (5-19); ASPARTATE AMINO TRANSFERASE 26 U/L (14-36); BILIRUBIN,DIRECT 0.2 mg/dL (0.0-0.4); BILIRUBIN,TOTAL 0.3 mg/dL (0.2-1.3); BLOOD UREA NITROGEN 12 mg/dL (7-20); CALCIUM 10.3 mg/dL (8.4-10.2); CARBON DIOXIDE 22 mmol/L (22-30); CHLORIDE 106 mmol/L (98-107); GLUCOSE 102 mg/dL (75-110); LIPASE 115.1 U/L (23-300); SODIUM 139.6 mmol/L (137-145); TOTAL PROTEIN 8.1 g/dL (6.3-8.2)
[2018-05-23] MEDS ORDERED: MAG HYDROX/AL HYDROX/SIMETH SUSP 30 ML UDCUP PO ONE (18:17)
[2018-05-23] MEDS ORDERED: METOCLOPRAMIDE HCL ORAL SOLN 10 MG/10 ML UDCUP PO ONE (18:17)
[2018-05-23] MEDS ORDERED: LIDOCAINE 2% VISCOUS SOLN 20 ML UDCUP PO ONE (18:17)
--- NOTE | 2018-05-23 18:24 | ER Document Report ---
ED General - General Chief Complaint: Vomiting/Diarrhea Stated Complaint: VOMITING Time Seen by Provider: 05/23/18 15:15 Primary Care Provider: MEDINA AMIN MD [ACTIVE STAFF] - Follow up as needed Mode of Arrival: Wheelchair TRAVEL OUTSIDE OF THE [place] IN LAST 30 DAYS: No - HPI Notes: Patient is a 27-year-old female who presents the emergency department complaining of nausea, vomiting, epigastric abdominal pain, belching that began last evening. Patient states that her last episode of emesis was prior to arrival and her diarrhea has been watery without any melena or hematochezia. Patient states that she does have a history of cholecystectomy as well as 4 C- sections. Discomfort does not radiate. No other concerns or complaints at this time. Patient states that she did receive medicine at triage which has helped. Denies any headache, fever, neck pain, URI, sore throat, chest pain, palpitations, syncope, cough, shortness of breath, wheeze, dyspnea, urinary retention, dysuria, hematuria, back pain, or rash. - Related Data Allergies/Adverse Reactions: fish derived [Fish derived] Allergy (Severe, Verified 05/23/18 14:14) swelling Penicillins Allergy (Severe, Verified 05/23/18 14:14) hives, rash Shellfish * [Shellfish] Allergy (Severe, Verified 05/23/18 14:14) Hives Past Medical History - General Information source: Patient - Social History Smoking Status: Current Every Day Smoker Frequency of alcohol use: None Drug Abuse: None Family History: Reviewed & Not Pertinent, Arthritis, Hyperlipidemia, Hyperte nsion, Malignancy Patient has suicidal ideation: No Patient has homicidal ideation: No Pulmonary Medical History: Reports: Hx Asthma - inhalers if needed, Hx Bronchitis Endocrine Medical History: Reports: Hx Hypothyroidism Renal/ Medical History: Denies: Hx Peritoneal Dialysis GI Medical History: Reports: Hx Gastroesophageal Reflux Disease Musculoskeletal Medical History: Reports Hx Musculoskeletal Deformity - Degenerative disc disease gentle joint disease and chronic back pain, Reports Hx Musculoskeletal Trauma Psychiatric Medical History: Reports: Hx Anxiety, Hx Depression Past Surgical History: Reports: Hx Section - X4, Hx Cholecystectomy - Immunizations Immunizations up to date: Yes Hx Diphtheria, Pertussis, Tetanus Vaccination: Yes Hx Pneumococcal Vaccination: 05/03/13 Review of Systems - Review of Systems -: Yes All other systems reviewed and negative Physical Exam - Vital signs Vitals: Temp Pulse Resp BP Pulse Ox 98 F 99 14 115/70 98 05/23/18 14:28 05/23/18 14:28 05/23/18 14:28 05/23/18 14:28 05/23/18 14:28 - Notes Notes: PHYSICAL EXAMINATION: GENERAL: Well-appearing, well-nourished and in no acute distress. A&Ox4. Answers questions appropriately. HEAD: Atraumatic, normocephalic. EYES: Pupils equal round and reactive to light, extraocular movements intact, sclera anicteric, conjunctiva are normal. ENT: Nares patent and without discharge. oropharynx clear without exudates. No tonsilar hypertrophy or erythema. Moist mucous membranes. NECK: Normal range of motion, supple without lymphadenopathy LUNGS: Breath sounds clear to auscultation bilaterally and equal. No wheezes rales or rhonchi. HEART: Regular rate and rhythm without murmurs, rubs, gallops. ABDOMEN: Soft, nondistended abdomen. No guarding, no rebound. No masses ap preciated. Normal bowel sounds present. No CVA tenderness bilaterally. + mild tenderness to the epigastrum (reproduces described pain). No tenderness RUQ or at McBurney point. Musculoskeletal: FROM to passive/active. Strength 5+/5. Extremities: No cyanosis, clubbing, or edema b/l. Peripheral pulses 2+. Capillary refill less than 3 seconds. NEUROLOGICAL: Cranial nerves grossly intact. Normal speech, normal gait. PSYCH: Normal mood, normal affect. SKIN: Warm, Dry, normal turgor, no rashes or lesions noted. Course - Re-evaluation Re-evalutation: 05/23/18 18:48 Patient is an afebrile, well-hydrated, 27-year-old female who presents the emergency department with nausea, vomiting, diarrhea, and epigastric abdominal pain which I suspect to be a viral illness. Vitals are acceptable without significant tachycardia, tachypnea, or hypoxia. PE is otherwise unremarkable. GI cocktail was provided and resolved patient's epigastric discomfort. CBC, CMP, lipase, hCG, urinalysis otherwise unremarkable. Patient received fluids and nausea medicine at triage. Patient has not had any episodes of emesis or loose stool throughout her stay. She has been here for a few hours. No further labs or imaging warranted. She is nontoxic-appearing and is tolerating p.o. without difficulty. Low suspicion/risk for acute appendicitis, bowel obstruction, acute cholecystitis, acute cholangitis, perforated diverticulitis, incarcerated hernia, pancreatitis, perforated ulcer, peritonitis, sepsis, pelvic inflammatory disease, ectopic , tubo-ovarian abscess, ovarian torsion, or other systemic emergent condition at this time. Patient is aware that her condition can change from initial presentation and she needs to monitor symptoms closely and seek medical attention if any acute changes. I will sent home with a prescription for Zofran, Carafate, and omeprazole. Conservative measures otherwise for symptoms. Recheck with your PCM in 2-3 days. Consider consult with a circular knitter helper. Return to the ED with any worsening/concerning symptoms otherwise as reviewed in discharge. Patient is in agreement. - Vital Signs Vital signs: Temp Pulse Resp BP Pulse Ox 98 F 99 14 115/70 98 05/23/18 14:28 05/23/18 14:28 05/23/18 14:28 05/23/18 14:28 05/23/18 14:28 - Laboratory Result Diagrams: 05/23/18 15:40 05/23/18 15:40 Laboratory results interpreted by me: 05/23/18 05/23/18 15:40 15:40 WBC 12.7 H Hgb 11.2 L Hct 35.5 L MCV 72 L MCH 22.5 L MCHC 31.4 L RDW 19.7 H Seg Neutrophils % 80.9 H Absolute Neutrophils 10.3 H Calcium 10.3 H Discharge - Discharge Clinical Impression: Nausea vomiting and diarrhea, Epigastric abdominal pain Condition: Stable Disposition: HOME, SELF-CARE Instructions: Abdominal Pain ([facility]), Antinausea Medication ([facility]), Diarrhea, Nonspecific ([facility]), Vomiting ([facility]) Additional Instructions: Maintain adequate fluid and food intake [place] diet ([employer] Bananas, rice, apples, toast, etc Zofran as needed tylenol if needed Monitor for any worsening symptoms Make sure you are staying hydrated enough to urinate and have normal BM's Recheck with your PCM in 2-3 days Consider consult with Gastroenterology for ongoing/worsening symptoms Return to the ED with any worsening symptoms and/or development of fever, headache, chest pain, palpitations, syncope, shortness of breath, trouble breathing, abdominal pain, n/v/d, blood in stool/urine, weakness, or other worsening symptoms that are concerning to you. Prescriptions: Omeprazole 20 mg PO DAILY #30 tablet. Ondansetron [Zofran Odt 4 mg Tablet] 1 - 2 tab PO Q4H PRN #15 tab.rapdis PRN Reason: For Nausea/Vomiting Sucralfate [Carafate] 1 gm PO BID #100 ml Forms: Smoking Cessation Education Referrals: MEDINA AMIN MD [ACTIVE STAFF] - Follow up as needed
[2018-05-23 19:18] VITALS: BP 127/79
== END 2018-05-23 19:18 | disposition home or self-care (01) ==
LOC: ER 14:12
DX: R11.2 Nausea with vomiting, unspecified (principal); R10.13 Epigastric pain; R19.7 Diarrhea, unspecified; F17.200 Nicotine dependence, unspecified, uncomplicated; Z90.49 Acquired absence of other specified parts of digestive tract; Z88.0 Allergy status to penicillin; Z91.013 Allergy to seafood
CPT/HCPCS: 99284; 96361; 96374; 96375; 36415; 84702; 83690; 85025; 80053; 81001; J1200; J3490; J2765; J7030

== ENCOUNTER 2019-05-13 16:15 | Emergency (ER) | payer MEDICAID ==
--- NOTE | 2019-05-13 16:53 | ER Document Report ---
ED Medical Screen (RME) - General Chief Complaint: Breathing Difficulty Stated Complaint: DIFFICULTY BREATHING/PAIN WHILE BREATHING Time Seen by Provider: 05/13/19 16:48 TRAVEL OUTSIDE OF THE [place] IN LAST 30 DAYS: No - HPI Notes: 05/13/19 16:51 Patient is a 28-year-old female who is approximately 8 months who presents complaining of feeling short of breath and a cough status post aspirating last night. Patient states that she woke up vomiting and aspirated some of the emesis which took her a while to get her airway cleared thereafter. Patient states that she now has chest pains associated with the breathing and the cough. No fever. She is not having any pelvic pain, low back pain, or vaginal bleeding. I have treated and performed a rapid initial assessment of this patient. A comp rehensive ED assessment and evaluation of the patient, analysis of test results and completion of medical decision making process will be conducted by additional ED providers. PHYSICAL EXAMINATION: GENERAL: Well-appearing, well-nourished and in no acute distress. A&Ox4. Answers questions appropriately. Heart: RRR Lungs: Grossly CTAB without retractions. - Related Data Allergies/Adverse Reactions: fish derived [Fish derived] Allergy (Severe, Verified 05/13/19 16:32) swelling Penicillins Allergy (Severe, Verified 05/13/19 16:32) hives, rash Shellfish * [Shellfish] Allergy (Severe, Verified 05/13/19 16:32) Hives Past Medical History Pulmonary Medical History: Reports: Hx Asthma - inhalers if needed, Hx Bronchitis Endocrine Medical History: Reports: Hx Hypothyroidism Renal/ Medical History: Denies: Hx Peritoneal Dialysis GI Medical History: Reports: Hx Gastroesophageal Reflux Disease Musculoskeltal Medical History: Reports Hx Musculoskeletal Deformity - Degenerative disc disease gentle joint disease and chronic back pain, Reports Hx Musculoskeletal Trauma Psychiatric Medical History: Reports: Hx Anxiety, Hx Depression Past Surgical History: Reports: Hx Section - X4, Hx Cholecystectomy - Immunizations Immunizations up to date: Yes Hx Diphtheria, Pertussis, Tetanus Vaccination: Yes Physical Exam - Vital signs Vitals: Temp Pulse Resp BP Pulse Ox 99.2 F 132 H 28 H 120/68 100 05/13/19 16:23 05/13/19 16:23 05/13/19 16:23 05/13/19 16:23 05/13/19 16:23 Course - Vital Signs Vital signs: Temp Pulse Resp BP Pulse Ox 99.2 F 132 H 28 H 120/68 100 05/13/19 16:23 05/13/19 16:23 05/13/19 16:23 05/13/19 16:23 05/13/19 16:23
--- NOTE | 2019-05-13 17:25 | ER Document Report ---
ED General - General Chief Complaint: Breathing Difficulty Stated Complaint: DIFFICULTY BREATHING/PAIN WHILE BREATHING Time Seen by Provider: 05/13/19 16:48 Primary Care Provider: DM BOSS MD [Primary Care Provider] - Follow up as needed TRAVEL OUTSIDE OF THE [place] IN LAST 30 DAYS: No - HPI Onset: This morning Onset/Duration: Sudden Quality of pain: Burning, Throbbing Severity: Moderate Pain Level: 3 Associated symptoms: Chest pain, Nonproductive cough, Shortness of breath Exacerbated by: Walking, Coughing, Deep breathing Relieved by: Remaining still Similar symptoms previously: No Recently seen / treated by doctor: No Notes: 28 year old Female who is about 8 months here for chest pain and shortness of breath which started this morning after she aspirated some vomit. The patient says she woke up this morning with vomit in her bed and she started to choke and she accidently aspirated some of the vomit. The patient is not sure why vomited. The patient denies recent fevers, chills, sweats, illness. The patient tells me she is anemic and her blood counts were reportedly low last week but she was told she didnt need a transfusion. - Related Data Allergies/Adverse Reactions: fish derived [Fish derived] Allergy (Severe, Verified 05/13/19 16:32) swelling Penicillins Allergy (Severe, Verified 05/13/19 16:32) hives, rash Shellfish * [Shellfish] Allergy (Severe, Verified 05/13/19 16:32) Hives Past Medical History - General Information source: Patient - Social History Smoking Status: Current Every Day Smoker Frequency of alcohol use: None Drug Abuse: None Family History: Reviewed & Not Pertinent, Arthritis, Hyperlipidemia, Hypertension, Malignancy Patient has suicidal ideation: No Patient has homicidal ideation: No Pulmonary Medical History: Reports: Hx Asthma - inhalers if needed, Hx Bronchitis Endocrine Medical History: Reports: Hx Hypothyroidism Renal/ Medical History: Denies: Hx Peritoneal Dialysis GI Medical History: Reports: Hx Gastroesophageal Reflux Disease Musculoskeletal Medical History: Reports Hx Musculoskeletal Deformity - Degenerative disc disease gentle joint disease and chronic back pain, Reports Hx Musculoskeletal Trauma Psychiatric Medical History: Reports: Hx Anxiety, Hx Depression Past Surgical History: Reports: Hx Section - X4, Hx Cholecystectomy - Immunizations Immunizations up to date: Yes Hx Diphtheria, Pertussis, Tetanus Vaccination: Yes Hx Pneumococcal Vaccination: 05/03/13 Review of Systems - Review of Systems Cardiovascular: Chest pain Respiratory: Cough, Short of breath Physical Exam - Vital signs Vitals: Temp Pulse Resp BP Pulse Ox 99.2 F 132 H 28 H 120/68 100 05/13/19 16:23 05/13/19 16:23 05/13/19 16:23 05/13/19 16:23 05/13/19 16:23 - Notes Notes: GENERAL: Well-appearing, well-nourished and in no acute distress. Anxious. HEAD: Atraumatic, normocephalic. EYES: Pupils equal round and reactive to light, extraocular movements intact, sclera anicteric, conjunctiva are normal. ENT: TMs normal, nares patent, oropharynx clear without exudates. Moist mucous membranes. NECK: Normal range of motion, supple without lymphadenopathy or JVD. LUNGS: Breath sounds clear to auscultation bilaterally and equal. No wheezes rales or rhonchi. HEART: Tachycardic, Regular rhythm without murmurs, rubs or gallops. ABDOMEN: Soft, nontender, normoactive bowel sounds. No guarding, no rebound. No masses appreciated. EXTREMITIES: Normal range of motion, no pitting or edema. No clubbing or cyanosis. NEUROLOGICAL: Cranial nerves II through XII grossly intact. Normal speech, normal gait. PSYCH: Normal mood, normal affect. SKIN: Warm, Dry, normal turgor, no rashes or lesions noted. Course - Re-evaluation Re-evalutation: 05/13/19 18:53 The patient is fairly anemic with a hemoglobin of 7.3. Since the patient is short of breath and tachycardic it would seem she is symptomatic from this low hemoglobin but she claims her hemoglobin was 6 in the clinic last week and she did not have those symptoms then. The patient thinks her symptoms are from aspirating but she has a clear lung exam and clear chest xray. 05/13/19 19:[address] Zhao of [facility] and she recommends a blood transfusion since the patient is symptomatic. She tells me the patient's hemoglobin was in the 7s when she was 26 weeks so it seems stable but the patient was not symptomatic back then. The patient is in agreement with the plan of a blood transfusion and outpatient [facility] follow up. Patient was told to continue taking Iron Supps 05/13/19 19:07 PE seems unlikely given the patient had a possible aspiration event and is also fairly anemic. Will reassess patient after blood transfusion to ensure vital signs normalize. - Vital Signs Vital signs: Temp Pulse Resp BP Pulse Ox 99.2 F 132 H 28 H 120/68 100 05/13/19 16:23 05/13/19 16:23 05/13/19 16:23 05/13/19 16:23 05/13/19 16:23 - Laboratory Result Diagrams: 05/13/19 17:45 05/13/19 17:45 Laboratory results interpreted by me: 05/13/19 05/13/19 05/13/19 17:45 17:45 17:45 WBC 12.2 H RBC 3.32 L Hgb 7.3 L Hct 23.3 L MCV 70 L MCH 21.9 L MCHC 31.2 L RDW 20.0 H Absolute Neuts (auto) 9.5 H VBG pCO2 30.5 L VBG HCO3 17.8 L Sodium 135.0 L Potassium 3.4 L Carbon Dioxide 20 L Creatinine 0.48 L Discharge - Discharge Clinical Impression: Shortness of breath Anemia Qualifiers: Anemia type: other cause Other causes of anemia: other cause, not classified Qualified Code(s): D64.89 - Other specified anemias Disposition: HOME, SELF-CARE Additional Instructions: Follow up with your [facility] Doctor. You were transfused 1unit of blood in the ER today. Continue taking your iron supplements. Referrals: DM BOSS MD [Primary Care Provider] - Follow up as needed
[2019-05-13] MEDS ORDERED: IPRATROPIUM/ALBUTEROL 0.5-2.5 MG/3 ML AMPUL NEB ONE (17:33)
--- NOTE | 2019-05-13 17:33 | RADIOLOGY REPORT (SQ) ---
EXAM DESCRIPTION: CHEST 2 VIEWS COMPLETED DATE/TIME: 05/13/2019 4:12 pm REASON FOR STUDY: SOB, aspirated emesis COMPARISON: CHEST RADIOGRAPH, 04/29/2015 EXAM PARAMETERS: NUMBER OF VIEWS: two views TECHNIQUE: Digital Frontal and Lateral radiographic views of the chest acquired. RADIATION DOSE: NA LIMITATIONS: none FINDINGS: LUNGS AND PLEURA: No opacities, masses or pneumothorax. No pleural effusion. MEDIASTINUM AND HILAR STRUCTURES: No masses or contour abnormalities. HEART AND VASCULAR STRUCTURES: Heart normal size. No evidence for failure. BONES: No acute findings. HARDWARE: None in the chest. OTHER: No other significant finding. IMPRESSION: NO ACUTE RADIOGRAPHIC FINDING IN THE CHEST. TECHNICAL DOCUMENTATION: JOB ID: [id number] [email or web address] Rights Reserved Reading location - IP/workstation name: [email or web address]
[2019-05-13] MEDS ORDERED: NORMAL SALINE 1000 ML 1,000 ML IV ONE (17:34)
[2019-05-13 18:14] LABS: VENOUS BLOOD BASE EXCESS -6.2 mmol/L; VENOUS BLOOD HCO3 17.8 mmol/L (20-32); VENOUS BLOOD PCO2 30.5 mmHg (35-63); VENOUS BLOOD PH 7.39 (7.30-7.42)
[2019-05-13 18:32] LABS: ALBUMIN 3.6 g/dL (3.5-5.0); ALKALINE PHOSPHATASE 71 U/L (38-126); ANION GAP 8 (5-19); ASPARTATE AMINO TRANSFERASE 14 U/L (14-36); BILIRUBIN,DIRECT 0.2 mg/dL (0.0-0.4); BILIRUBIN,TOTAL 0.3 mg/dL (0.2-1.3); BLOOD UREA NITROGEN 7 mg/dL (7-20); CARBON DIOXIDE 20 mmol/L (22-30); CHLORIDE 107 mmol/L (98-107); GLUCOSE 105 mg/dL (75-110); POTASSIUM 3.4 mmol/L (3.6-5.0); TOTAL PROTEIN 7.1 g/dL (6.3-8.2)
[2019-05-13 18:38] LABS: ABSOLUTE BASOPHILS # (AUTO) 0.1 10^3/uL (0.0-0.2); ABSOLUTE EOSINOPHILS # (AUTO) 0.1 10^3/uL (0.0-0.6); ABSOLUTE LYMPHOCYTES (AUTO) 1.8 10^3/uL (0.5-4.7); ABSOLUTE MONOCYTES (AUTO) 0.7 10^3/uL (0.1-1.4); ABSOLUTE NEUT (AUTO) 9.5 10^3/uL (1.7-8.2); BASOPHILS % (AUTO) 0.8 % (0-2); EOSINOPHILS % (AUTO) 0.9 % (0-6); HEMATOCRIT 23.3 % (36.0-47.0); LYMPHOCYTES % (AUTO) 14.9 % (13-45); MEAN CORPUSCULAR HEMOGLOBIN 21.9 pg (27.0-33.4); MEAN CORPUSCULAR HGB CONC 31.2 g/dL (32.0-36.0); MEAN CORPUSCULAR VOLUME 70 fl (80-97); MONOCYTES % (AUTO) 5.4 % (3-13); PLATELET COUNT 203 10^3/uL (150-450); RED BLOOD COUNT 3.32 10^6/uL (3.72-5.28); TOTAL CELLS COUNTED % (AUTO) 100 %; WHITE BLOOD COUNT 12.2 10^3/uL (4.0-10.5)
[2019-05-13 18:42] LABS: HEMOGLOBIN 7.3 g/dL (12.0-15.5)
[2019-05-13] MEDS ORDERED: NORMAL SALINE 250 ML IV PRN ×2 (19:01)
[2019-05-13 20:08] LABS: APPEARANCE,URINE CLOUDY; BILIRUBIN,URINE NEGATIVE (NEGATIVE); COLOR,URINE YELLOW; GLUCOSE, URINE NEGATIVE (NEGATIVE); KETONES,URINE NEGATIVE (NEGATIVE); PROTEIN,URINE NEGATIVE (NEGATIVE); URINE SPECIFIC GRAVITY 1.008; UROBILINOGEN,URINE NEGATIVE mg/dL (<2.0)
[2019-05-13 23:51] VITALS: BP 128/72
--- NOTE | 2019-05-14 17:48 | EKG REPORT ---
SEVERITY:- OTHERWISE NORMAL ECG - SINUS TACHYCARDIA : Confirmed by: Chanda Escalante 14-May-2019 17:47:52
== END 2019-05-14 00:02 | disposition home or self-care (01) ==
LOC: ER 16:15
DX: O26.893 Other specified pregnancy related conditions, third trimester (principal); R06.02 Shortness of breath; D64.89 Other specified anemias; R00.0 Tachycardia, unspecified; O21.9 Vomiting of pregnancy, unspecified; O99.333 Smoking (tobacco) complicating pregnancy, third trimester; O99.513 Diseases of the respiratory system complicating pregnancy, third trimester; J45.909 Unspecified asthma, uncomplicated; Z3A.36 36 weeks gestation of pregnancy
CPT/HCPCS: 93005; 94640; 99285; 96360; 86900; 86901; 36415; 36430; 86850; 85025; 80053; 81001; 84484; 86920; 82803; 71046; 93010; P9016; J7030; J7620

== ENCOUNTER 2019-06-01 13:41 | Outpatient (CLI) | payer MEDICAID ==
[~2019-06-01 13:41] MED LIST changes: -CEFAZOLIN 1 GM/D5W RTU 1 GM/50 ML RTUPB IV PRN; +FERRIC CARBOXYMALTOSE 750 MG in NORMAL SALINE 250 ML IV PRN; -LACTATED RINGERS 1000 ML IV PRN; -LIDOCAINE 0.5% INJ-PF (5 MG/ML) 50 ML SDV SUBCUT PRN; +NORMAL SALINE 250 ML IV PRN; -RINGERS SOLUTION,LACTATED 1,000 ML IV PRN
[2019-06-01 14:03] VITALS: BP 119/74
== END 2019-06-01 15:15 | disposition home or self-care (01) ==
LOC: II 13:41 → 5TH 13:44 → II 15:15
PROVIDERS: ATTEND Obstetrics & Gynecology Gynecology
DX: O99.019 Anemia complicating pregnancy, unspecified trimester (principal)
CPT/HCPCS: 96365; J7050; J1439

== ENCOUNTER 2019-06-08 13:51 | Outpatient (CLI) | payer MEDICAID ==
[2019-06-08 14:53] VITALS: BP 115/65
== END 2019-06-08 14:57 | disposition home or self-care (01) ==
LOC: II 13:51 → 5TH 13:53 → II 14:57
PROVIDERS: ATTEND Obstetrics & Gynecology Gynecology
DX: O99.019 Anemia complicating pregnancy, unspecified trimester (principal)
CPT/HCPCS: 96365; J7050; J1439

== ENCOUNTER 2019-07-17 14:51 | Outpatient (CLI) | payer MEDICAID ==
[2019-07-17 15:34] LABS: APPEARANCE,URINE CLOUDY; BILIRUBIN,URINE NEGATIVE (NEGATIVE); COLOR,URINE YELLOW; GLUCOSE, URINE NEGATIVE (NEGATIVE); KETONES,URINE NEGATIVE (NEGATIVE); LEUKOCYTE ESTERASE,URINE NEGATIVE (NEGATIVE); NITRITE,URINE NEGATIVE (NEGATIVE); PROTEIN,URINE 30 mg/dL (NEGATIVE); URINE SPECIFIC GRAVITY 1.019; UROBILINOGEN,URINE NEGATIVE mg/dL (<2.0)
[2019-07-17 15:53] LABS: URINE AMPHETAMINES SCREEN NEGATIVE; URINE BARBITURATES SCREEN NEGATIVE; URINE BENZODIAZEPINES SCREEN NEGATIVE; URINE COCAINE SCREEN NEGATIVE; URINE METHADONE SCREEN NEGATIVE; URINE PHENCYCLIDINE SCREEN NEGATIVE
[2019-07-17 15:59] LABS: URINE MARIJUANA (THC) SCREEN UNCONFIRMED POSITIVE
[2019-07-17] MEDS ORDERED: RINGERS SOLUTION,LACTATED 1,000 ML IV ONE (16:31)
[2019-07-17] MEDS ORDERED: PROMETHAZINE HCL INJ 25 MG/1 ML VIAL IV ONE (16:37)
[2019-07-17] MEDS ORDERED: PROMETHAZINE HCL INJ 25 MG/1 ML VIAL ONE (16:37)
--- NOTE | 2019-07-17 18:00 | Non Stress Test Report ---
Non Stress Test Datetime Report Generated by CPN: 07/17/2019 17:59 DEMOGRAPHIC Test Number: 1 EGA NST: 36.2 INDICATION Indication for Study (NST) Other: IUP @ 36.2 wks abdominal pain VITAL SIGNS Temperature - NST: 98.5 Pulse - NST: 123 RESP - NST: 14 NBPSYS NST: 102 NBPDIA NST: 53 MONITORING Monitor Explained: Monitor Explained; Test Explained; Patient Verbalized Understanding Time on Monitor: 07/17/2019 15:25 Time off Monitor: 07/17/2019 17:43 NST Duration: 138 NST INTERVENTIONS NST Interventions: PO Hydration; Reposition Patient Physician Notified NST: A. Sanchez, CNM on unit BABY A: [id number] BABY A Movement : Present Contraction Frequency : rare FHR Baseline : 125 Accelerations : 15X15 Decelerations : Variable Variability : Moderate 6-25bpm NST Review: Meets Criteria for Reactive NST NST Review and Verified By : TMartin, RN NST Results: Reactive NST REPORT Report Trigger: Send Report
== END 2019-07-17 17:51 | disposition home or self-care (01) ==
LOC: LC 14:51
PROVIDERS: ATTEND Obstetrics & Gynecology
PROC: 4A1HXCZ Monitoring of Products of Conception, Cardiac Rate, External Approach (ICD-10-PCS; principal; 2019-07-17)
DX: O99.613 Diseases of the digestive system complicating pregnancy, third trimester (principal); Z3A.36 36 weeks gestation of pregnancy
CPT/HCPCS: 81005; 80307; 59025; G0480 ×2; J2550; 80349

== ENCOUNTER 2019-08-07 06:32 | Inpatient (IN) | payer MEDICAID ==
[2019-07-31 10:56] LABS: APPEARANCE,URINE SLIGHTLY-CLOUDY; BILIRUBIN,URINE NEGATIVE (NEGATIVE); GLUCOSE, URINE NEGATIVE (NEGATIVE); KETONES,URINE NEGATIVE (NEGATIVE); LEUKOCYTE ESTERASE,URINE NEGATIVE (NEGATIVE); NITRITE,URINE NEGATIVE (NEGATIVE); PROTEIN,URINE 100 mg/dL (NEGATIVE); URINE SPECIFIC GRAVITY 1.029
[2019-07-31 10:57] LABS: COLOR,URINE DARK YELLOW
[2019-07-31 11:12] LABS: ABSOLUTE EOSINOPHILS # (AUTO) 0.1 10^3/uL (0.0-0.6); ABSOLUTE LYMPHOCYTES (AUTO) 2.3 10^3/uL (0.5-4.7); ABSOLUTE MONOCYTES (AUTO) 0.6 10^3/uL (0.1-1.4); ABSOLUTE NEUT (AUTO) 6.6 10^3/uL (1.7-8.2); BASOPHILS % (AUTO) 0.4 % (0-2); EOSINOPHILS % (AUTO) 1.4 % (0-6); HEMATOCRIT 35.7 % (36.0-47.0); HEMOGLOBIN 12.4 g/dL (12.0-15.5); LYMPHOCYTES % (AUTO) 23.7 % (13-45); MEAN CORPUSCULAR HEMOGLOBIN 31.1 pg (27.0-33.4); MEAN CORPUSCULAR HGB CONC 34.8 g/dL (32.0-36.0); MEAN CORPUSCULAR VOLUME 90 fl (80-97); MONOCYTES % (AUTO) 6.6 % (3-13); PLATELET COUNT 280 10^3/uL (150-450); RED BLOOD COUNT 3.99 10^6/uL (3.72-5.28); RED CELL DISTRIBUTION WIDTH 23.2 % (11.5-14.0); SEGMENTED NEUTROPHILS % (AUTO) 67.9 % (42-78); TOTAL CELLS COUNTED % (AUTO) 100 %; WHITE BLOOD COUNT 9.7 10^3/uL (4.0-10.5)
[2019-07-31 11:15] LABS: URINE AMPHETAMINES SCREEN NEGATIVE; URINE BARBITURATES SCREEN NEGATIVE; URINE BENZODIAZEPINES SCREEN NEGATIVE; URINE COCAINE SCREEN NEGATIVE; URINE METHADONE SCREEN NEGATIVE; URINE PHENCYCLIDINE SCREEN NEGATIVE
[2019-07-31 12:02] LABS: ANISOCYTOSIS 3+; OVALOCYTES SLIGHT; POIKILOCYTOSIS 1+; POLYCHROMASIA SLIGHT; TEAR DROP CELLS SLIGHT
[2019-07-31 12:03] LABS: PLATELET COMMENT ADEQUATE
[2019-07-31 13:11] LABS: URINE MARIJUANA (THC) SCREEN UNCONFIRMED POSITIVE
[~2019-08-07 06:32] MED LIST changes: -FERRIC CARBOXYMALTOSE 750 MG in NORMAL SALINE 250 ML IV PRN; +LACTATED RINGERS 1000 ML IV PRN; +LIDOCAINE 0.5% INJ-PF (5 MG/ML) 50 ML SDV SUBCUT PRN; -NORMAL SALINE 250 ML IV PRN; +RINGERS SOLUTION,LACTATED 1,000 ML IV PRN
[2019-08-07] MEDS ORDERED: AZITHROMYCIN 500 MG in DEXTROSE 5%-WATER 250 ML IV PRN (07:11)
[2019-08-07] MEDS ORDERED: CEFAZOLIN SODIUM 2 GM in DEXTROSE 5%-WATER 100 ML IV SCH (08:00)
[2019-08-07 08:21] LABS: ABSOLUTE BASOPHILS # (AUTO) 0.1 10^3/uL (0.0-0.2); ABSOLUTE EOSINOPHILS # (AUTO) 0.1 10^3/uL (0.0-0.6); ABSOLUTE LYMPHOCYTES (AUTO) 2.5 10^3/uL (0.5-4.7); ABSOLUTE MONOCYTES (AUTO) 0.9 10^3/uL (0.1-1.4); ABSOLUTE NEUT (AUTO) 7.3 10^3/uL (1.7-8.2); BASOPHILS % (AUTO) 0.7 % (0-2); EOSINOPHILS % (AUTO) 1.4 % (0-6); HEMATOCRIT 34.4 % (36.0-47.0); HEMOGLOBIN 11.9 g/dL (12.0-15.5); LYMPHOCYTES % (AUTO) 22.8 % (13-45); MEAN CORPUSCULAR HEMOGLOBIN 31.3 pg (27.0-33.4); MEAN CORPUSCULAR HGB CONC 34.7 g/dL (32.0-36.0); MEAN CORPUSCULAR VOLUME 90 fl (80-97); MONOCYTES % (AUTO) 8.1 % (3-13); PLATELET COUNT 247 10^3/uL (150-450); RED BLOOD COUNT 3.82 10^6/uL (3.72-5.28); RED CELL DISTRIBUTION WIDTH 21.3 % (11.5-14.0); TOTAL CELLS COUNTED % (AUTO) 100 %; WHITE BLOOD COUNT 10.9 10^3/uL (4.0-10.5)
[2019-08-07 09:01] LABS: STOMATOCYTES SLIGHT
[2019-08-07 09:06] LABS: ANISOCYTOSIS 3+; OVALOCYTES SLIGHT; POIKILOCYTOSIS 1+; TOXIC VACUOLATION PRESENT
[2019-08-07 09:07] LABS: POLYCHROMASIA SLIGHT
[2019-08-07 09:17] LABS: PLATELET COMMENT ADEQUATE
[2019-08-07] MEDS ORDERED: EPHEDRINE SULFATE INJ 50 MG/1 ML AMPULE ONE (09:24)
[2019-08-07] MEDS ORDERED: FENTANYL CITRATE INJ/PF 100 MCG/2 ML AMPUL ONE (09:24)
[2019-08-07] MEDS ORDERED: OXYTOCIN 10 UNIT/ML VIAL ONE (09:24)
[2019-08-07] MEDS ORDERED: OXYTOCIN/NORMAL SALINE 20 UNIT/1,000 ML RTUINJ ONE (09:25)
[2019-08-07] MEDS ORDERED: MIDAZOLAM 2 MG/2 ML INJ ONE ×2 (09:25→09:38)
[2019-08-07] MEDS ORDERED: ONDANSETRON HCL INJ/PF 4 MG/2 ML SDV ONE (09:25)
[2019-08-07] MEDS ORDERED: DIPHENHYDRAMINE HCL 50 MG/ML VIAL ONE (09:42)
[2019-08-07] MEDS ORDERED: PROMETHAZINE HCL INJ 25 MG/1 ML VIAL IV PRN ×2 (10:29→11:00)
[2019-08-07] MEDS ORDERED: MEPERIDINE HCL/PF INJ 25 MG/1 ML DISP.SYRIN IV PRN (10:29)
[2019-08-07] MEDS ORDERED: FENTANYL CITRATE INJ/PF 100 MCG/2 ML AMPUL IV PRN ×3 (10:29)
[2019-08-07] MEDS ORDERED: MORPHINE SULFATE 10 MG/ML INJ IV PRN (10:29)
[2019-08-07] MEDS ORDERED: DIPHENHYDRAMINE HCL 50 MG/ML VIAL IV PRN (10:29)
[2019-08-07] MEDS ORDERED: OXYTOCIN/NORMAL SALINE 20 UNIT/1,000 ML RTUINJ IV PRN (11:00)
[2019-08-07] MEDS ORDERED: ACETAMINOPHEN 1,000 MG/100 ML RTUPB IV PRN (11:00)
[2019-08-07] MEDS ORDERED: RINGERS SOLUTION,LACTATED 1,000 ML IV PRN (11:00)
[2019-08-07] MEDS ORDERED: OXYCODONE-ACETAMINOPHEN 5-325 MG TABLET PO PRN (11:00)
[2019-08-07] MEDS ORDERED: DIPH/PERTUSS(ACELL)/TETANUS VAC/PF 0.5 ML SYR (>=10YO) IM PRN (11:00)
[2019-08-07] MEDS ORDERED: SIMETHICONE 80 MG TAB.CHEW PO PRN (11:00)
[2019-08-07] MEDS ORDERED: ACETAMINOPHEN 325 MG TABLET PO PRN (11:00)
[2019-08-07] MEDS ORDERED: MEASLES,MUMPS&RUBELLA VACC/PF 0.5 ML VIAL SUBCUT PRN (11:00)
--- NOTE | 2019-08-07 11:07 | Operative Report ---
Operative Report DATE OF SURGERY: 08/07/19 PREOPERATIVE DIAGNOSIS: Patient desires a repeat to prevent risk of u terine rupture and a tubal ligation POSTOPERATIVE DIAGNOSIS: Same, of note patient has very thin fascial layer and no muscle layer under the fascia. OPERATION: Repeat via low transverse uterine incision tubal ligation with Filshie clips SURGEON: TIMOTEO ROBERTS ANESTHESIA: Spinal TISSUE REMOVED OR ALTERED: Placenta COMPLICATIONS: None ESTIMATED BLOOD LOSS: 300 INTRAOPERATIVE FINDINGS: The patient has a very thin fascial layer with no muscle layer under the fascia it is fascia then peritoneum PROCEDURE: Patient was taken to the OR and placed in supine position after her spinal anesthesia. She is prepared and draped in sterile fashion. Marin was placed for drainage of the bladder. Low transverse incision was made and carried down the level of the fascia. While making the fascial incision the peritoneum was also entered without incident. The patient has no rectus muscle between the fascia and peritoneum across the entire incision. The peritoneum was entered without incident. Bladder blade was placed in uterine segment was identified. A low transverse incision was made creating a bladder flap. Bladder blade was placed low transverse uterine incision was made with the knife and extended with fingertips. The baby was delivered with some fundal pressure. Mouth and nose were suctioned free. The cord is doubly clamped and cut. Baby is passed off to the sheet rock applier in attendance. The placenta was manually extracted with trailing membranes. The uterus was externalized wrapped in a moist lap sponge. Uterine contents wiped free. Uterus was closed with a running locking layer of 0 chromic suture using the second layer to imbricate the first completing a double layer closure of the uterus. The serosa was closed with a running 2-0 chromic stitch. A Filshie clip was placed across the mid isthmic portion of each fallopian tube. The pelvis was irrigated and suctioned free of fluid the uterus was replaced in the abdomen. The abdominal wall peritoneum was closed with running 2-0 chromic stitch. Fascia was closed with a running 0 Vicryl in 2 segments. Roxane's layer was brought together with 0 plain gut stitch and the skin was closed with running subcuticular 4-0 undyed Vicryl stitch. The wound was dressed mother and baby did well.
[2019-08-07] MEDS: FENTANYL CITRATE INJ/PF 100 MCG/2 ML AMPUL ONE ×2 (11:35→11:40)
[2019-08-07] MEDS ORDERED: MEPERIDINE HCL/PF INJ 25 MG/1 ML DISP.SYRIN ONE (11:41)
[2019-08-07] MEDS: KETOROLAC TROMETHAMINE INJ/PF 30 MG/1 ML SDV IV SCH ×2 (13:33→21:27)
[2019-08-07] MEDS: OXYCODONE-ACETAMINOPHEN 5-325 MG TABLET PO PRN ×2 (13:34→17:36)
[2019-08-07] MEDS: HYDROMORPHONE HCL INJ/PF 2 MG/ML AMPULE IV PRN ×2 (16:07→22:04)
[2019-08-07] MEDS ORDERED: NICOTINE 14 MG/24 HR PATCH.TD24 TD SCH (17:00)
[2019-08-07] MEDS: DOCUSATE SODIUM 100 MG CAPSULE PO SCH (17:36)
[2019-08-08] MEDS: OXYCODONE-ACETAMINOPHEN 5-325 MG TABLET PO PRN ×5 (01:10→20:35)
[2019-08-08] MEDS: KETOROLAC TROMETHAMINE INJ/PF 30 MG/1 ML SDV IV SCH (05:07)
[2019-08-08 07:00] LABS: HEMATOCRIT 32.1 % (36.0-47.0); HEMOGLOBIN 11.1 g/dL (12.0-15.5); MEAN CORPUSCULAR HEMOGLOBIN 31.1 pg (27.0-33.4); MEAN CORPUSCULAR HGB CONC 34.7 g/dL (32.0-36.0); MEAN CORPUSCULAR VOLUME 90 fl (80-97); PLATELET COUNT 181 10^3/uL (150-450); RED BLOOD COUNT 3.58 10^6/uL (3.72-5.28); RED CELL DISTRIBUTION WIDTH 20.9 % (11.5-14.0); WHITE BLOOD COUNT 10.2 10^3/uL (4.0-10.5)
[2019-08-08] MEDS: PRENATAL VITAMIN W DHA CAPSULE PO SCH (09:15)
[2019-08-08] MEDS: DOCUSATE SODIUM 100 MG CAPSULE PO SCH ×2 (09:15→17:16)
--- NOTE | 2019-08-08 10:22 | PDOC PROGRESS REPORT ---
Subjective-OB Progress Note for:: 08/08/19 Subjective: 28yo G7 now P5 s/p repeat ppd1. Pt ambulating and voiding without difficulty. Reports pain well controlled with medications. No concerns today Physical Exam (OB) Vital Signs: Temp Pulse Resp BP Pulse Ox 97.6 F 68 16 122/76 100 08/08/19 07:43 08/08/19 07:43 08/08/19 07:43 08/08/19 07:43 08/08/19 07:43 Intake & Output 08/07/19 08/08/19 08/09/19 06:59 06:59 06:59 Intake Total 500 3150 Output Total 700 3190 600 Balance -200 -40 -600 Weight 111.584 kg - General General Appearance: Appears well In distress: None - PIH/Pre-Eclampsia DTR's: 1 + Clonus: Negative Headache: Absent Epigastric Pain: No Visual Changes: No - Dressing Removed: No - opsite Incision: Dressing Closure Type: Surgical Glue - Lochia Lochia Amount: Small 10-25 ml Lochia Color: Rubra/Red - Abdomen Description: Soft, Round Fundal Description: Firm, Midline Fundal Height: u/u - u/2 - Respiratory Respiratory Status: No respiratory distress - Extremities Upper extremity: Normal inspection Lower extremities: Normal inspection - Neurological Cognition: Normal Orientation: AAOx4 - Psychological Associated symptoms: Normal affect, Normal mood Objective-Diagnostic Laboratory: 08/08/19 06:33 08/08/19 06:33 WBC 10.2 RBC 3.58 L Hgb 11.1 L Hct 32.1 L MCV 90 MCH 31.1 MCHC 34.7 RDW 20.9 H Plt Count 181 Assessment and Plan(PN) - Assessment and Plan (1) Tubal ligation status Is this a current diagnosis for this admission?: Yes Plan: Routine pp care (2) S/P repeat low transverse Is this a current diagnosis for this admission?: Yes Plan: Routine pp care (3) Cigarette smoker within last 12 months Is this a current diagnosis for this admission?: Yes Plan: cessation encouraged (4) Depression affecting in third trimester, antepartum Is this a current diagnosis for this admission?: Yes Plan: continue to monitor for s/s of depression. 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
[2019-08-08] MEDS: IBUPROFEN 800 MG TABLET PO SCH ×2 (12:12→17:16)
[2019-08-08] MEDS ORDERED: NICOTINE 14 MG/24 HR PATCH.TD24 TD SCH (17:00)
[2019-08-09] MEDS: OXYCODONE-ACETAMINOPHEN 5-325 MG TABLET PO PRN ×3 (00:35→09:07)
[2019-08-09] MEDS: IBUPROFEN 800 MG TABLET PO SCH ×3 (00:35→11:05)
[2019-08-09] MEDS: DOCUSATE SODIUM 100 MG CAPSULE PO SCH (09:07)
[2019-08-09] MEDS: PRENATAL VITAMIN W DHA CAPSULE PO SCH (09:07)
--- NOTE | 2019-08-09 09:46 | PDOC DISCHARGE SUMMARY ---
Impression - Admit/DC Date/PCP Admission Date/Primary Care Provider: 08/07/19 06:32 TIMOTEO ROBERTS MD Discharge Date: 08/09/19 - Discharge Diagnosis (1) Depression affecting in third trimester, antepartum Is this a current diagnosis for this admission?: Yes (2) Drug use affecting in third trimester Is this a current diagnosis for this admission?: Yes (3) Tubal ligation status Is this a current diagnosis for this admission?: Yes (4) Cigarette smoker within last 12 months Is this a current diagnosis for this admission?: Yes (5) Status post repeat low transverse section Is this a current diagnosis for this admission?: Yes - Additional Information Resuscitation Status: Full Code Discharge Diet: Regular Discharge Activity: Balance Activity w/Rest, No Lifting Over 10 Pounds, No Lifting/Push/Pulling, Pelvic Rest, No tub bath Referrals: TIMOTEO ROBERTS MD [Primary Care Provider] - Home Medications: Iron,Carbonyl/Ascorbic Acid [Iron 100-Vitamin C Tablet] 1 tab PO DAILY 07/17/19 Vits96/Iron Fum/Folic [ Tablet] 1 tab PO DAILY 07/17/19 Results Laboratory Results: WBC 10.2 10^3/uL (4.0-10.5) 08/08/19 06:33 RBC 3.58 10^6/uL (3.72-5.28) L 08/08/19 06:33 Hgb 11.1 g/dL (12.0-15.5) L 08/08/19 06:33 Hct 32.1 % (36.0-47.0) L 08/08/19 06:33 MCV 90 fl (80-97) 08/08/19 06:33 MCH 31.1 pg (27.0-33.4) 08/08/19 06:33 MCHC 34.7 g/dL (32.0-36.0) 08/08/19 06:33 RDW 20.9 % (11.5-14.0) H 08/08/19 06:33 Plt Count 181 10^3/uL (150-450) 08/08/19 06:33 Lymph % (Auto) 22.8 % (13-45) 08/07/19 07:58 Bullock % (Auto) 8.1 % (3-13) 08/07/19 07:58 Eos % (Auto) 1.4 % (0-6) 08/07/19 07:58 Baso % (Auto) 0.7 % (0-2) 08/07/19 07:58 Absolute Neuts (auto) 7.3 10^3/uL (1.7-8.2) 08/07/19 07:58 Absolute Lymphs (auto) 2.5 10^3/uL (0.5-4.7) 08/07/19 07:58 Absolute Monos (auto) 0.9 10^3/uL (0.1-1.4) 08/07/19 07:58 Absolute Eos (auto) 0.1 10^3/uL (0.0-0.6) 08/07/19 07:58 Absolute Basos (auto) 0.1 10^3/uL (0.0-0.2) 08/07/19 07:58 Seg Neutrophils % 67.0 % (42-78) 08/07/19 07:58 Toxic Vacuolation PRESENT 08/07/19 07:58 Platelet Comment ADEQUATE 08/07/19 07:58 Polychromasia SLIGHT 08/07/19 07:58 Poikilocytosis 1+ 08/07/19 07:58 Anisocytosis 3+ 08/07/19 07:58 Tear Drop Cells SLIGHT 07/31/19 10:19 Ovalocytes SLIGHT 08/07/19 07:58 Stomatocytes SLIGHT 08/07/19 07:58 Urine Color DARK YELLOW 07/31/19 10:12 Urine Appearance SLIGHTLY-CLOUDY 07/31/19 10:12 Urine pH 6.0 (5.0-9.0) 07/31/19 10:12 Ur Specific Wendell 1.029 07/31/19 10:12 Urine Protein 100 mg/dL (NEGATIVE) H 07/31/19 10:12 Urine Glucose (UA) NEGATIVE mg/dL (NEGATIVE) 07/31/19 10:12 Urine Ketones NEGATIVE mg/dL (NEGATIVE) 07/31/19 10:12 Urine Blood SMALL (NEGATIVE) H 07/31/19 10:12 Urine Nitrite NEGATIVE (NEGATIVE) 07/31/19 10:12 Urine Bilirubin NEGATIVE (NEGATIVE) 07/31/19 10:12 Urine Urobilinogen 2.0 mg/dL (<2.0) H 07/31/19 10:12 Ur Leukocyte Esterase NEGATIVE (NEGATIVE) 07/31/19 10:12 Urine WBC (Auto) 5 /HPF 07/31/19 10:12 Urine RBC (Auto) 7 /HPF 07/31/19 10:12 Squamous Epi Cells Auto 19 /HPF 07/31/19 10:12 Urine Mucus (Auto) OCC /LPF 07/31/19 10:12 Urine Ascorbic Acid NEGATIVE (NEGATIVE) 07/31/19 10:12 Urine Opiates Screen NEGATIVE 07/31/19 10:12 Urine Methadone Screen NEGATIVE 07/31/19 10:12 Ur Barbiturates Screen NEGATIVE 07/31/19 10:12 Ur Phencyclidine Scrn NEGATIVE 07/31/19 10:12 Ur Amphetamines Screen NEGATIVE 07/31/19 10:12 U Benzodiazepines Scrn NEGATIVE 07/31/19 10:12 Urine Cocaine Screen NEGATIVE 07/31/19 10:12 U Marijuana (THC) Screen UNCONFIRMED POSITIVE 07/31/19 10:12 Blood Type A POSITIVE 08/05/19 09:45 Antibody Screen NEGATIVE 08/05/19 09:45
[2019-08-09 11:38] VITALS: BP 147/92
== END 2019-08-09 12:10 | disposition home or self-care (01) | DRG 784 ==
LOC: 2S 06:32 → EDSTATUS 09:30
PROVIDERS: ADMIT Obstetrics & Gynecology; ATTEND Obstetrics & Gynecology
PROC: 0UL70CZ Occlusion of Bilateral Fallopian Tubes with Extraluminal Device, Open Approach (ICD-10-PCS; 2019-08-07)
PROC: 10D00Z1 Extraction of Products of Conception, Low, Open Approach (ICD-10-PCS; principal; 2019-08-07 09:30)
PROC: 3E0234Z Introduction of Serum, Toxoid and Vaccine into Muscle, Percutaneous Approach (ICD-10-PCS; 2019-08-09)
DX: O34.211 Maternal care for low transverse scar from previous cesarean delivery (principal); O99.324 Drug use complicating childbirth; O99.334 Smoking (tobacco) complicating childbirth; F17.210 Nicotine dependence, cigarettes, uncomplicated; Z30.2 Encounter for sterilization; Z37.0 Single live birth; Z88.0 Allergy status to penicillin; Z91.013 Allergy to seafood; O99.344 Other mental disorders complicating childbirth; F32.9 Major depressive disorder, single episode, unspecified; Z23 Encounter for immunization; F19.90 Other psychoactive substance use, unspecified, uncomplicated; O99.52 Diseases of the respiratory system complicating childbirth; J45.909 Unspecified asthma, uncomplicated
CPT/HCPCS: 1961; 36415; 80307; 81001; 85025; 85027; 86850; 86900; 86901; 90715; 94799; J0690; J1170; J1200; J1885; J2175; J2250; J2405; J2590; J3010; J3490; J7060; J7120

== ENCOUNTER 2019-08-15 16:47 | Outpatient (CLI) | payer MEDICAID ==
[2019-08-15] MEDS ORDERED: ACETAMINOPHEN 325 MG TABLET PO ONE (17:13)
[2019-08-15] MEDS ORDERED: HYDROXYZINE PAMOATE 50 MG CAPSULE PO ONE (17:19)
[2019-08-15] MEDS ORDERED: ACETAMINOPHEN 325 MG TABLET ONE (17:21)
[2019-08-15] MEDS ORDERED: HYDROXYZINE PAMOATE 50 MG CAPSULE ONE (17:21)
[2019-08-15 17:41] LABS: ABSOLUTE BASOPHILS # (AUTO) 0.1 10^3/uL (0.0-0.2); ABSOLUTE EOSINOPHILS # (AUTO) 0.2 10^3/uL (0.0-0.6); ABSOLUTE LYMPHOCYTES (AUTO) 2.1 10^3/uL (0.5-4.7); ABSOLUTE MONOCYTES (AUTO) 0.6 10^3/uL (0.1-1.4); ABSOLUTE NEUT (AUTO) 6.1 10^3/uL (1.7-8.2); BASOPHILS % (AUTO) 0.8 % (0-2); HEMATOCRIT 34.7 % (36.0-47.0); HEMOGLOBIN 12.1 g/dL (12.0-15.5); LYMPHOCYTES % (AUTO) 22.9 % (13-45); MEAN CORPUSCULAR HEMOGLOBIN 31.1 pg (27.0-33.4); MEAN CORPUSCULAR HGB CONC 34.9 g/dL (32.0-36.0); MEAN CORPUSCULAR VOLUME 89 fl (80-97); PLATELET COUNT 260 10^3/uL (150-450); SEGMENTED NEUTROPHILS % (AUTO) 67.3 % (42-78); TOTAL CELLS COUNTED % (AUTO) 100 %; WHITE BLOOD COUNT 9.1 10^3/uL (4.0-10.5)
[2019-08-15 17:54] LABS: URINE AMPHETAMINES SCREEN NEGATIVE; URINE BARBITURATES SCREEN NEGATIVE; URINE BENZODIAZEPINES SCREEN NEGATIVE; URINE COCAINE SCREEN NEGATIVE; URINE METHADONE SCREEN NEGATIVE; URINE PHENCYCLIDINE SCREEN NEGATIVE
[2019-08-15 17:56] LABS: URINE MARIJUANA (THC) SCREEN UNCONFIRMED POSITIVE
[2019-08-15 18:04] LABS: ANISOCYTOSIS 2+; PLATELET COMMENT ADEQUATE
[2019-08-15 18:05] LABS: POLYCHROMASIA SLIGHT
[2019-08-15 18:06] LABS: ALBUMIN 3.4 g/dL (3.5-5.0); ALKALINE PHOSPHATASE 88 U/L (38-126); ANION GAP 7 (5-19); ASPARTATE AMINO TRANSFERASE 23 U/L (14-36); BILIRUBIN,TOTAL 0.3 mg/dL (0.2-1.3); BLOOD UREA NITROGEN 13 mg/dL (7-20); CALCIUM 9.2 mg/dL (8.4-10.2); CARBON DIOXIDE 22 mmol/L (22-30); CHLORIDE 110 mmol/L (98-107); GLUCOSE 94 mg/dL (75-110); OVALOCYTES SLIGHT; POTASSIUM 4.2 mmol/L (3.6-5.0); TOTAL PROTEIN 6.6 g/dL (6.3-8.2); URIC ACID 6.3 mg/dL (2.5-6.2)
[2019-08-15] MEDS ORDERED: NIFEDIPINE 10 MG CAPSULE ONE (18:16)
[2019-08-15] MEDS ORDERED: NIFEDIPINE 10 MG CAPSULE PO ONE (18:19)
[2019-08-15] MEDS ORDERED: RINGERS SOLUTION,LACTATED 1,000 ML IV PRN (19:02)
[2019-08-15] MEDS ORDERED: RINGERS SOLUTION,LACTATED 1,000 ML IV ONE (19:02)
[2019-08-15 19:43] LABS: APPEARANCE,URINE SLIGHTLY-CLOUDY; BILIRUBIN,URINE NEGATIVE (NEGATIVE); COLOR,URINE YELLOW; GLUCOSE, URINE NEGATIVE (NEGATIVE); KETONES,URINE NEGATIVE (NEGATIVE); LEUKOCYTE ESTERASE,URINE SMALL (NEGATIVE); NITRITE,URINE NEGATIVE (NEGATIVE); PROTEIN,URINE 30 mg/dL (NEGATIVE); URINE SPECIFIC GRAVITY 1.009; UROBILINOGEN,URINE NEGATIVE mg/dL (<2.0)
[2019-08-15 20:20] LABS: UR PRO/CREAT RATIO RESULT 0.7 mg/mg (0.0-0.2); URINE PROTEIN 35.3 mg/dL (<12)
== END 2019-08-15 20:40 | disposition home or self-care (01) ==
LOC: LC 16:47
PROVIDERS: ATTEND Obstetrics & Gynecology Gynecology
DX: O90.89 Other complications of the puerperium, not elsewhere classified (principal)
CPT/HCPCS: 86900; 86901; 36415; 86850; 83615; 84156; 84550; 82570; 85025; 80053; 81001; 80307; J3490 ×3; 99465